=== PATIENT | female | born 1995 | race African-American/Black ===

== ENCOUNTER → 2017-05-29 | Outpatient (CLI) | payer OTHER | END | disposition home or self-care (01) | LOC: C.LABSPEC 13:38 | PROVIDERS: ATTEND Obstetrics & Gynecology | DX: Z34.03 Encounter for supervision of normal first pregnancy, third trimester (principal) ==

== ENCOUNTER → 2017-05-29 | Outpatient (CLI) | payer OTHER ==
[2017-05-29 14:41] LABS: HEMOGLOBIN 10.1 g/dL (12.0-16.0)
== END | disposition home or self-care (01) ==
LOC: C.LAB1850 12:18
PROVIDERS: ATTEND Obstetrics & Gynecology
DX: Z34.03 Encounter for supervision of normal first pregnancy, third trimester (principal)

== ENCOUNTER → 2017-06-09 | Outpatient (CLI) | payer OTHER | END | disposition home or self-care (01) | LOC: C.LAB1850 07:09 | PROVIDERS: ATTEND Obstetrics & Gynecology | DX: O28.1 Abnormal biochemical finding on antenatal screening of mother (principal) ==

== ENCOUNTER → 2017-07-31 | Outpatient (CLI) | payer OTHER | END | disposition home or self-care (01) | LOC: C.LABSPEC 13:49 | PROVIDERS: ATTEND Obstetrics & Gynecology | DX: O98.219 Gonorrhea complicating pregnancy, unspecified trimester (principal); Z3A.00 Weeks of gestation of pregnancy not specified ==

== ENCOUNTER 2017-08-12 23:03 | Inpatient (IN) | payer OTHER ==
[~2017-08-12] VITALS: Ht 157.5 cm; Wt 94.0 kg
[2017-08-12] MEDS ORDERED: LACTATED RINGER'S 1000ML 1,000 ML IV PRN (23:47)
[2017-08-13] MEDS ORDERED: PENICILLIN G POTASSIUM IV 6 MU in DEXTROSE 5% 250ML 250 ML IV ONE ×2
[2017-08-13] MEDS: LACTATED RINGER'S 1000ML 1,000 ML IV SCH ×2 (00:09→06:58)
[2017-08-13 00:12] LABS: MEAN CORPUSCULAR HGB CONC 35.5 g/dl (32-36)
[2017-08-13 00:15] VITALS: Ht 157.5 cm; Wt 94.0 kg
[2017-08-13] MEDS ORDERED: PREN1TAB29 (00:16)
[2017-08-13 00:19] LABS: HEMATOCRIT 32.4 % (37-47); HEMOGLOBIN 11.5 g/dL (12.0-16.0); MEAN CELL VOLUME 69.7 fL (80-100); MEAN CORPUSCULAR HEMOGLOBIN 24.7 pg (25-34); RED CELL DISTRIBUTION WIDTH CV 18.4 % (11.5-14.5); RED CELL DISTRIBUTION WIDTH SD 46.5 fL (36.4-46.3); WHITE BLOOD COUNT 5.48 K/uL (4.8-10.8)
[2017-08-13 00:59] LABS: PLATELET COUNT 130 K/uL (130-400)
[2017-08-13] MEDS ORDERED: BUPIVACAINE 0.25% 30 ML VIAL ONE (01:38)
[2017-08-13] MEDS ORDERED: EpHEDrine SULFATE INJ 50 MG/ML AMP ONE (01:38)
[2017-08-13] MEDS ORDERED: FENTANYL CITRATE INJ 50 MCG/1 ML 2 ML VIAL ONE (01:39)
[2017-08-13] MEDS ORDERED: FENTANYL 2MCG/ML ROPIV 1.25MG/ML 100ML BAG ONE (01:39)
[2017-08-13] MEDS ORDERED: LACTATED RINGER'S 1000ML 500 ML IV PRN (03:11)
[2017-08-13] MEDS ORDERED: NALOXONE HCL INJ 1 MG in SODIUM CHLORIDE 0.9% 1000ML 1,000 ML IV PRN (03:11)
[2017-08-13] MEDS ORDERED: EpHEDrine SULFATE INJ 50 MG/ML AMP IV PRN (03:15)
[2017-08-13] MEDS ORDERED: NALBUPHINE HCL INJ 10 MG/ML AMP IV PRN (03:15)
[2017-08-13] MEDS ORDERED: DiphenhydrAMINE HCL 50 MG/ML VIAL IV PRN (03:15)
[2017-08-13] MEDS ORDERED: ONDANSETRON INJ 2 MG/ML 2 ML VIAL IV PRN (03:15)
[2017-08-13] MEDS ORDERED: FENTANYL 2MCG/ML ROPIV 1.25MG/ML 100ML BAG EPI PRN (03:15)
[2017-08-13] MEDS ORDERED: NALOXONE HCL INJ 0.4 MG/1 ML VIAL/CARP IV PRN (03:15)
[2017-08-13] MEDS: PENICILLIN G POTASSIUM IV 3 MU in DEXTROSE 5% 100ML 100 ML IV PRN ×2 (03:55→08:02)
[2017-08-13 04:06] LABS: ALBUMIN 2.3 gm/dl (3.4-5.0); CALCIUM 7.9 mg/dl (8.5-10.1); CREATININE 0.81 mg/dl (0.60-1.20); POTASSIUM 3.8 mmol/L (3.5-5.1)
[2017-08-13] MEDS ORDERED: OXYTOCIN 30 UNITS/500ML NSS IV ONE (08:50)
[2017-08-13] MEDS ORDERED: METHYLERGONOVINE MALEATE 0.2 MG/ML AMP ONE (10:03)
[2017-08-13] MEDS ORDERED: CARBOPROST TROMETHAMINE 250 MCG/ML AMP ONE (10:03)
[2017-08-13] MEDS ORDERED: MISOPROSTOL 200 MCG TAB ONE (10:11)
[2017-08-13] MEDS ORDERED: OXYTOCIN INJ 20 UNITS in LACTATED RINGER'S 1000ML 1,000 ML IV SCH (10:20)
[2017-08-13] MEDS ORDERED: IBUPROFEN 600 MG TAB ONE (10:29)
[2017-08-13] MEDS ORDERED: SUPERCREAM 0.870 % 15GM JAR EXT PRN (10:30)
[2017-08-13] MEDS ORDERED: MISOPROSTOL 200 MCG TAB PR SCH (10:30)
[2017-08-13] MEDS ORDERED: BENZOCAINE 20% AER SPR 82.5 GM CAN EXT PRN (10:30)
[2017-08-13] MEDS ORDERED: ACETAMINOPHEN 325 MG TAB PO PRN (10:30)
[2017-08-13] MEDS ORDERED: LANOLIN OINT EXT PRN (10:30)
[2017-08-13] MEDS ORDERED: OXYTOCIN 30 UNITS/500ML NSS IV PRN (10:30)
[2017-08-13] MEDS ORDERED: DIPHTHERIA/TETANUS/PERTUSSIS 0.5 ML SYR/VIAL IM. ONE (10:30)
[2017-08-13] MEDS ORDERED: HYDROCORTISONE ACETATE 25 MG SUPP PR PRN (10:30)
--- NOTE | 2017-08-13 10:44 | DELIVERY SUMMARY ---
DATE OF OPERATION: 08/13/2017 This is a delivery summary. The patient dilated to complete and pushed to deliver a viable female , Apgars 8 and 9 via over second degree perineal laceration. Mouth and nose bulb suctioned at the perineum. Shoulders and body delivered with ease. was vigorous and crying at , there was known meconium stained fluid. Cord clamped at 30 seconds of life and to maternal abdomen where the cord was then doubly clamped and cut. Placenta was delivered spontaneously and intact, 3-vessel cord. Hemostasis was inadequate with dilute Pitocin and uterine massage and therefore 800 mcg of rectal Cytotec was given. Uterine tone improved after this as well as after the bladder was drained under sterile conditions for approximately 200 mL of urine. Laceration repaired in usual fashion using 3-0 Vicryl. Mother stable in recovery. EBL 500 mL. Cord blood and cord gas was obtained. By this time baby was on radiant warmer receiving attention. I attest to the content of the Intraoperative Record and any orders documented therein. Any exceptions are noted below. MTDD
--- NOTE | 2017-08-13 10:47 | Anesthesia Procedure Note ---
Anesthesia Epidural Removal Nt Date & Time Aug 13, 2017 at 10:47 Vital Signs Pain Intensity: 0.0 Notes Mental Status: alert / awake / arousable, participated in evaluation Nausea / Vomiting: adequately controlled Pain: adequately controlled Airway Patency, RR, SpO2: stable & adequate BP & HR: stable & adequate Hydration State: stable & adequate Neuraxial Anesthesia: was administered Anesthetic Complications: no major complications apparent, pt satisfied with anesthetic care Epidural: removed without complications, with tip intact
[2017-08-13 13:45] VITALS: BP 151/84; PULSE 73; TEMP 37.8
[2017-08-13 15:40] VITALS: BP 152/77; PULSE 79; TEMP 37.6
[2017-08-13] MEDS: IBUPROFEN 600 MG TAB PO PRN ×2 (16:00→22:13)
[2017-08-13] MEDS: OXYCODONE/ACETAMINOPHEN 5-325 TAB PO PRN ×2 (16:00→22:14)
[2017-08-13 17:30] VITALS: TEMP 37.6
--- NOTE | 2017-08-13 18:22 | Progress Note ---
Progress Note Date of Service Aug 13, 2017. Progress Note called by nursing due to pt complaints of significant pain in bilateral upper extremities. she had started to complain of this in labor. also with bilateral LE swelling and now one sided leg pain. Rec duplex bilateral LE to evaluate for dvt. As far as the arm pain, I am puzzled. She has sickle cell trait but given that she is oxygenating normally cannot see a relation. Doubt risk for upper extrem dvt given arms not swollen? Still, I requested consult with hospitalist for their evaluation and management of upper extremity pain and called Dr. Dave personally. She is not tachypneic, nor does she complain of cp or sob,. She does have elevated sbp and I did check a cmp earlier this am given likely diagnosis of gestational hypertension. She has low grade fever, ? viral illness. We will follow that and add cbc in am. Await consult.
[2017-08-13] MEDS: DOCUSATE SODIUM 100 MG CAP PO SCH (20:00)
[2017-08-13 20:30] VITALS: BP 132/84; PULSE 72; TEMP 37.4; O2SAT 99
--- NOTE | 2017-08-13 20:56 | Medical Consult ---
Consultation Date of Consultation: Aug 13, 2017. Attending Physician: Agnes Obrien M.D.(MANAGER OF APPLICATION DEVELOPMENT/OB) Reason for Consultation: Bilateral arm pain, lower extremity swelling History of Present Illness 22-year-old female with past medical history of sickle cell trait, beta thalassemia minor. She had a normal , does not smoke or drink alcohol. Has been complaining of both hands pain during , she contributed it to carpal tunnel syndrome. Her family is in [place] so she has been traveling with the bus back and forth to [place] during the last few months. Multiple family members are smokers and they smoke inside the house. She noticed bilateral lower extremity swelling That has been getting progressively worse throughout her Today she had a normal vaginal delivery that was uneventful. After delivery patient complained of bilateral upper extremities pain, intermittent chest tightness and lower extremity pain We were consulted to investigate her bilateral upper extremity pain and fever Patient stated that she has been having productive cough with yellowish mucus for the last 2 days Social History Smoking Status: Never Smoker Allergies Coded Allergies: No Known Allergies (Unverified , 08/13/17) Current Inpatient Medications Current Inpatient Medications Medications (Trade) Dose Ordered Sig/Ramy Route Start Time Stop Time Status Last Admin Dose Admin Oxytocin 20 units/ Lactated Ringer's 1,002 ml @ 125 mls/hr Q8H1M IV 08/13/17 10:20 08/14/17 02:21 08/13/17 12:11 125 MLS/HR Oxytocin (Pitocin IV) 30 units UD PRN IV 08/13/17 10:30 09/12/17 10:29 Benzocaine (Dermoplast Aero Spr) 1 appln PRN PRN EXT 08/13/17 10:30 09/12/17 10:29 Cocaine HCl (Supercream 0.870% Cr) BID PRN EXT 08/13/17 10:30 08/27/17 10:29 Hydrocortisone Acetate (Anusol Hc Supp) 25 mg BID PRN ND 08/13/17 10:30 09/12/17 10:29 Lanolin (Lanolin Oint) PRN PRN EXT 08/13/17 10:30 09/12/17 10:29 Ibuprofen (Motrin Tab) 600 mg Q4H PRN PO 08/13/17 10:30 09/12/17 10:29 4/29/18 16:00 600 MG Acetaminophen (Tylenol Tab) 650 mg Q6H PRN PO 08/13/17 10:30 09/12/17 10:29 08/13/17 12:33 650 MG Oxycodone/ Acetaminophen (Percocet 5-325mg Tab) 1 tab Q4H PRN PO 08/13/17 10:30 08/27/17 10:29 08/13/17 16:00 1 TAB Docusate Sodium (coLACE CAP) 100 mg BID PO 08/13/17 20:00 09/12/17 19:59 08/13/17 20:00 100 MG Review of Systems Review of system Constitutional: No fever / no chills / no sweats / no weakness / no fatigue Eyes: no blurring of vision / no eye pain / no discharge / no redness ENT: no hearing loss / no epistaxis /no swallowing problems Respiratory: Productive cough with yellowish mucus/ no SOB / no hemoptysis Cardiovascular: no Chest pain / no lower extremity edema / no palpitation, some intermittent chest tightness Abdomen: no pain / no nausea / no vomiting / no constipation Musculoskeletal: no joint pain / no muscle pain / no joint swelling, bilateral lower extremity swelling, bilateral upper extremity pain Genitourinary: no dysuria / no incontinence / no urinary retention Neurologic: no focal weakness / no numbness/tingling / no ataxia Psychiatric: no depression symptoms / no anxiety / no insomnia Endocrine: no excessive thirst / no excessive urination Hematologic: no abnormal bleeding / no bruising / no LN swelling Skin: No rash / no pallor Physical Exam Date Time Temp Pulse Resp B/P (MAP) Pulse Ox O2 Delivery O2 Flow Rate FiO2 08/13/17 17:30 37.6 08/13/17 15:40 37.6 79 18 152/77 (102) Room Air 08/13/17 15:40 Room Air 08/13/17 13:45 37.8 73 20 151/84 (106) Room Air 08/13/17 13:45 Room Air Physical examination General patient appears to be comfortable, not in acute distress HEENT: Atraumatic , normocephalic /no jaundice /no pallor /anicteric /no dry mucous membrane /normal external ear inspection Neck: Supple /no swelling /central trach Heart: S1/S2 normal/regular rate and rhythm/no gallop /no rub /no murmur Lungs: Clear to auscultation bilaterally/normal chest with expansion/no rhonchi/ no rales/no wheezing/no use of accessory muscles of respiration Abdomen: Soft/nontender/no guarding/no rebound/no organomegaly/no pulsatile mass Musculoskeletal: No swelling/no edema/no tenderness/normal range of motion Neuro exam: Awake alert oriented 3/cranial nerves II through XII appear to be intact/sensation intact/moves all extremities/no abnormal movements Psychiatric evaluation: No depressed mood/normal affect Skin: No rash on exposed skin area/no erythema Extremity: Normal pulse/bilateral +1 edema/no clubbing or cyanosis Endocrine/lymphatic: No obvious lymphadenopathy /no lymphedema Laboratory Results Last 24 Hours Test 08/13/17 00:02 08/13/17 03:36 08/13/17 20:41 White Blood Count 5.48 K/uL Red Blood Count 4.65 M/uL Hemoglobin 11.5 g/dL Hematocrit 32.4 % Mean Corpuscular Volume 69.7 fL Mean Corpuscular Hemoglobin 24.7 pg Mean Corpuscular Hemoglobin Concent 35.5 g/dl RDW Standard Deviation 46.5 fL RDW Coefficient of Variation 18.4 % Platelet Count 130 K/uL Platelet Estimate NORMAL Sodium Level 136 mmol/L Potassium Level 3.8 mmol/L Chloride Level 107 mmol/L Carbon Dioxide Level 20 mmol/L Anion Gap 9.0 mmol/L Blood Urea Nitrogen 6 mg/dl Creatinine 0.81 mg/dl Est Creatinine Clear Calc Drug Dose 118.4 ml/min Estimated GFR () 121.2 Estimated GFR (Non- 104.6 BUN/Creatinine Ratio 7.9 Random Glucose 84 mg/dl Calcium Level 7.9 mg/dl Total Bilirubin 1.0 mg/dl Aspartate Amino Transf (AST/SGOT) 30 U/L Alanine Aminotransferase (ALT/SGPT) 27 U/L Alkaline Phosphatase 115 U/L Total Protein 6.0 gm/dl Albumin 2.3 gm/dl Globulin 3.7 gm/dl Albumin/Globulin Ratio 0.6 Assessment & Plan 22-year-old female with beta thalassemia minor and sickle cell trait, never had any crisis before, has been having productive cough for the last 3 days, today status post vaginal delivery complained of bilateral upper extremity pain, chest tightness, bilateral lower extremity swelling. Assessment Productive cough accompanied by fever, possible pneumonia or bronchitis Bilateral lower extremity swelling and some chest tightness, rule out DVT Bilateral upper extremity pain could be contributed to carpal tunnel syndrome Plan Obtain chest x-ray 2 views rule out pneumonia Ultrasound lower extremity rule out DVT Patient is currently nursing, order him ampicillin for bronchitis/pneumonia Order troponin/EKG/CMP/CBC/blood cultures/UA and urine culture Patient has been mobile walking back and forth from the nursery to her room. Physical exam is not impressive. Normal oxygen saturation and normal heart rate, which makes pulmonary embolism is low suspicious. We will defer CT angiogram as patient is currently nursing Appears to have slightly elevated blood pressure, will follow up in a.m. if persistently elevated then will consider adding blood pressure medication
[2017-08-13 21:16] LABS: BASO % 0.1 %; BASO ABS # 0.01 K/uL (0-0.2); HEMATOCRIT 26.4 % (37-47); HEMOGLOBIN 9.2 g/dL (12.0-16.0); IG# 0.06 K/uL (0.00-0.02); LYMPH % 11.6 %; LYMPH ABS # 1.14 K/uL (1.2-3.4); MEAN CELL VOLUME 69.7 fL (80-100); MEAN CORPUSCULAR HEMOGLOBIN 24.3 pg (25-34); MEAN CORPUSCULAR HGB CONC 34.8 g/dl (32-36); MEAN PLATELET VOLUME 9.7 fL (7.4-10.4); MONO % 9.5 %; MONO ABS # 0.93 K/uL (0.11-0.59); NEUT % 78.2 %; PLATELET COUNT 134 K/uL (130-400); RED CELL DISTRIBUTION WIDTH CV 18.2 % (11.5-14.5); RED CELL DISTRIBUTION WIDTH SD 46.5 fL (36.4-46.3); WHITE BLOOD COUNT 9.84 K/uL (4.8-10.8)
--- NOTE | 2017-08-13 21:32 | DIAGNOSTIC IMAGING REPORT ---
TWO VIEW CHEST CLINICAL HISTORY: Cough. FINDINGS: PA and lateral chest radiographs are obtained. No prior studies are available for comparison at the time of dictation. The cardiomediastinal silhouette is unremarkable. The lungs and pleural spaces are clear. There is no pneumothorax. The bony thorax appears intact. IMPRESSION: No active disease in the chest. Electronically signed by: Eddie Nguyen M.D. 08/13/2017 9:30 PM Dictated Date/Time: 08/13/2017 9:29 PM
[2017-08-13 21:40] LABS: CALCIUM 7.4 mg/dl (8.5-10.1); CREATININE 0.85 mg/dl (0.60-1.20); POTASSIUM 4.2 mmol/L (3.5-5.1)
[2017-08-13 21:43] LABS: TOTAL PROTEIN 5.2 gm/dl (6.4-8.2)
--- NOTE | 2017-08-13 22:03 | DIAGNOSTIC IMAGING REPORT ---
ULTRASOUND BILATERAL LOWER EXTREMITY VENOUS CLINICAL HISTORY: Leg pain and swelling. COMPARISON STUDY: No priors. TECHNIQUE: Real-time, grayscale, and color Doppler sonography of the deep veins of the right and left lower extremity was performed from the inguinal crease to the calf. Compression and augmentation were utilized. FINDINGS: There is no sonographic evidence of deep venous thrombosis identified in the right or left lower extremity. The common femoral, superficial femoral, and popliteal veins are patent and normally compressible bilaterally. The greater saphenous vein and the profunda femoris vein at the junction with the common femoral vein are clear in both legs. The visualized calf veins are patent bilaterally. IMPRESSION: There is no sonographic evidence of deep venous thrombosis identified in the right or left lower extremity. Electronically signed by: Eddie Nguyen M.D. 08/13/2017 10:01 PM Dictated Date/Time: 08/13/2017 10:01 PM
[2017-08-13] MEDS: AMPICILLIN 250 MG CAP PO SCH (22:14)
[2017-08-14 00:15] VITALS: BP 148/82; PULSE 78; TEMP 36.9; O2SAT 98
[2017-08-14] MEDS ORDERED: LIDOCAINE HCL 2% JELLY 30 ML TUBE ONE (02:53)
[2017-08-14 03:15] VITALS: BP 143/80; PULSE 71; TEMP 37.2; O2SAT 100
[2017-08-14] MEDS: AMPICILLIN 250 MG CAP PO SCH ×4 (03:19→20:26)
[2017-08-14] MEDS: IBUPROFEN 600 MG TAB PO PRN ×5 (03:25→21:14)
[2017-08-14] MEDS: OXYCODONE/ACETAMINOPHEN 5-325 TAB PO PRN ×5 (03:26→21:14)
--- NOTE | 2017-08-14 06:45 | Progress Note ---
Subjective Aug 14, 2017. Subjective conversation w/ patient, physical exam Ambulation: ambulating normally Voiding: no voiding problems Diet Tolerance: Regular Diet Feeding Type: Breast Feeding Pain: bottom sore, upper extremity pain Comment: evaluated by hospitalists due to upper extremity pain. LE eval and no evid of dvts. swelling unchanged. Objective Vital Signs Date Time Temp Pulse Resp B/P (MAP) Pulse Ox O2 Delivery O2 Flow Rate FiO2 08/14/17 03:15 37.2 71 18 143/80 (101) 100 Room Air 08/14/17 00:15 36.9 78 18 148/82 (104) 98 Room Air 08/14/17 00:15 98 Room Air 08/13/17 20:30 37.4 72 18 132/84 (100) 99 Room Air 08/13/17 20:30 99 Room Air 08/13/17 17:30 37.6 08/13/17 15:40 37.6 79 18 152/77 (102) Room Air 08/13/17 15:40 Room Air 08/13/17 13:45 37.8 73 20 151/84 (106) Room Air 08/13/17 13:45 Room Air Physical Exam General Appearance: WELL-APPEARING, WD/WN, NO APPARENT DISTRESS Respiratory/Chest: lungs clear Cardiovascular: regular rate, rhythm Abdomen: non tender, soft Fundus: Firm, Tender (appropriately), Relation to Umbilicus (at u) Extremities: non-tender, + swelling (+2 bilaterally. no calf tenderness) Laboratory Results Last 24 Hours Test 08/13/17 20:57 08/13/17 21:03 08/13/17 23:55 08/14/17 04:44 White Blood Count 9.84 K/uL Red Blood Count 3.79 M/uL Hemoglobin 9.2 g/dL Hematocrit 26.4 % Mean Corpuscular Volume 69.7 fL Mean Corpuscular Hemoglobin 24.3 pg Mean Corpuscular Hemoglobin Concent 34.8 g/dl Platelet Count 134 K/uL Mean Platelet Volume 9.7 fL Neutrophils (%) (Auto) 78.2 % Lymphocytes (%) (Auto) 11.6 % Monocytes (%) (Auto) 9.5 % Eosinophils (%) (Auto) 0.0 % Basophils (%) (Auto) 0.1 % Neutrophils # (Auto) 7.70 K/uL Lymphocytes # (Auto) 1.14 K/uL Monocytes # (Auto) 0.93 K/uL Eosinophils # (Auto) 0.00 K/uL Basophils # (Auto) 0.01 K/uL RDW Standard Deviation 46.5 fL RDW Coefficient of Variation 18.2 % Immature Granulocyte % (Auto) 0.6 % Immature Granulocyte # (Auto) 0.06 K/uL Red Blood Cell Morphology Unremarkable Sodium Level 136 mmol/L Potassium Level 4.2 mmol/L Chloride Level 106 mmol/L Carbon Dioxide Level 23 mmol/L Anion Gap 8.0 mmol/L Blood Urea Nitrogen 7 mg/dl Creatinine 0.85 mg/dl Est Creatinine Clear Calc Drug Dose 112.8 ml/min Estimated GFR () 114.3 Estimated GFR (Non- 98.6 BUN/Creatinine Ratio 8.6 Random Glucose 91 mg/dl Calcium Level 7.4 mg/dl Total Bilirubin 0.7 mg/dl Aspartate Amino Transf (AST/SGOT) 50 U/L Alanine Aminotransferase (ALT/SGPT) 29 U/L Alkaline Phosphatase 98 U/L Total Protein 5.2 gm/dl Albumin 2.0 gm/dl Globulin 3.2 gm/dl Albumin/Globulin Ratio 0.6 Lactic Acid Level 1.1 mmol/L Urine Color YELLOW Urine Appearance CLEAR Urine pH 5.5 Urine Specific [place] 1.008 Urine Protein TRACE Urine Glucose (UA) NEG Urine Ketones NEG Urine Occult Blood 3+ Urine Nitrite NEG Urine Bilirubin NEG Urine Urobilinogen NEG Urine Leukocyte Esterase MODERATE Urine WBC (Auto) 10-30 /hpf Urine RBC (Auto) >30 /hpf Urine Hyaline Casts (Auto) 1-5 /lpf Urine Epithelial Cells (Auto) 20-30 /lpf Urine Bacteria (Auto) NEG Assessment and Plan Post- Day#: 1 Continue Routine Care: stable. eval by hospitalist appreciated. peripheral edema noted and expect slow resolution and reviewed that with patient. unclear etiology of upper arm pain and patient aware of rationale for consult and some labs pending. she is baby who is in intermediate nursery. jason po but hasn't eaten much. routine care today. bps are noted. may require bp check in one wk but do not feel pt requires bp meds due to dx of gest hypertension.
--- NOTE | 2017-08-14 07:11 | Discharge Instructions ---
Discharge Instructions Date of Service Aug 14, 2017. Admission Reason for Admission: LABOR Discharge Discharge Diagnosis / Problem: Vaginal Delivery Discharge Goals Goal(s): Routine recovery after delivery Medications Continue Dispensed Medications: supercream, dermaplast, lansinoh Activity Recommendations Activity Limitations: per Instructions/Follow-up section . Instructions / Follow-Up Instructions / Follow-Up ACTIVITY RECOMMENDATIONS: * Gradual return to full activity over the next 2-3 weeks. * No lifting - nothing heavier than baby over the next 2-3 weeks. * Do not engage in vigorous exercise, sexual activity or sports until cleared by your physician. * Do not drive or operate any motorized equipment until cleared by your physician. * You may shower/bathe daily. MEDICATIONS: For discomfort or pain, you may use Acetaminophen (Tylenol), Ibuprofen (Advil), or Naproxen (Aleve) following the package directions. For constipation you may use Colace following the package directions. BREAST CARE: If you are not breast feeding: * Wear a supportive bra 24 hours a day for one to two weeks. * Avoid stimulating your breasts and nipples as much as possible during the first few weeks after delivery. * When taking a shower, have the warm water hit your back, not breasts. * When your breasts feel full, apply ice packs. Usually three to four times a day helps ease the discomfort. * Take a mild pain medication (Tylenol / Motrin) when you are uncomfortable. If breast feeding: * Use breast milk to lubricate nipples. Lansinoh cream may be used for sore nipples. You do not need to remove cream prior to breast feeding. If using a different brand of cream, check the label for directions regarding removal of cream prior to nursing. * Wear a supportive bra. * If having problems with breasts or breast feeding, call a business systems consultant or your health care provider. EPISIOTOMY CARE: After delivery, if you have an episiotomy (stitches), the following steps will ease discomfort and aid healing. * For the first 24 hours after delivery, place ice packs next to your episiotomy to help reduce swelling. * After the first 24 hour-period, sitz baths, either portable or in the tub, are suggested. A shower with a shower arm sprayed over the episiotomy may be comforting. * Santa care should be done after each voiding and bowel movement. Squirt warm water from a plastic bottle over the perineum (region of the body between the anus and urinary opening) and pat dry. * Use Dermoplast to ease discomfort. Shake container. [place] directly over the episiotomy. Place a Tucks on a clean sanitary pad next to your episiotomy. SPECIAL CARE INSTRUCTIONS: When you are discharged from the hospital, it is important for you to follow the instructions listed below: * During the first week at home, you should be able to care for yourself and your baby. In addition, the usual light household activities are encouraged. * Limit your activities to the way you feel. Do not try to clean the house or move furniture. Be sensible. * If you actively engage in sports and have done so up until the time of your delivery, you may resume these activities as soon as you feel able. This may take up to one month or even longer. Use good judgment. * Continue to take your vitamins for at least six weeks after the of your baby. * Your diet need not be limited unless you were on a special diet before your delivery. Breast-feeding mothers need around 2500 calories per day and at least 64-80 ounces of fluid per day (8 to 10 glasses). * You should eat foods from the four major food groups. Crash diets or fad diets are to be avoided. Eating lean meats, fresh fruits and vegetables, low-fat dairy products, high fiber foods and a regular exercise program, will help you get back to your pre- weight without putting your health at risk. * Constipation is sometimes a problem after delivery. Take a mild laxative as needed. If breast feeding, Milk of Magnesia is acceptable to use. You may use a suppository or Fleets enema if no episiotomy. * A daily shower or tub bath is suggested. Be sure to thoroughly and gently dry the perineum. * A bloody vaginal discharge will usually continue until around four weeks post . A small amount of bleeding may continue for as long as six weeks. Vaginal discharge changes from the bright red bleeding after delivery to pink then brownish and finally yellowish-pink before becoming white and disappearing. * Bleeding may increase with activity. Your first period may come in 4-8 weeks. If you are breast feeding, your period may be delayed even longer. * [place] (sex) can begin whenever both you and your partner feel comfortable and do not have any form of genital infection. It is recommended that you wait at least six weeks for internal and external healing to occur. If you have questions, please talk to your health care practitioner. A condom should be used to prevent infection and . * Foreplay, gentle intercourse and lubrication is very important the first several times to prevent pain. A water-based lubricant such as K-Y jelly or Astroglide may be used. * If you have RH negative blood and your baby is RH positive, you will receive RHOGAM by injection prior to discharge. The nurse will give you a card to keep with you that has the date and place that you received RHOGAM after delivery. * During your care, you had a Rubella screen done to check for the presence of rubella antibodies in your blood. If your test was negative, you will receive a Rubella vaccine prior to discharge. This vaccine may cause a fever, soreness at the injection site and flu-like symptoms. If these symptoms persist, notify your health care practitioner. is not advised for one month after a Rubella vaccine. * Verbalizes understanding of car seat law as reviewed with patient nursing. * Car Seat hand-out given and reviewed with patient by nursing. * Shaken baby information reviewed with patient by nursing. Call you doctor if: * Heavy bleeding (saturating several pads an hour) or passing clots the size of your fist. * A fever >101 degrees F (38.3 degrees C) on two occasions four hours apart and /or chills. * Unusual pain in the pelvic or vaginal areas. * "Baby Blues" lasting longer than two weeks. If you have any questions or concerns, call your health care practitioner at . FOLLOW UP VISIT: * Please call the office at to schedule a 6 week examination. It is important you keep this appointment. It is important for you to make arrangements for either yearly or twice yearly check-ups thereafter. Current Hospital Diet Patient's current hospital diet: Regular OB Diet Discharge Diet Recommended Diet: Regular OB Diet Pending Studies Studies pending at discharge: no Medical Emergencies . Who to Call and When: Medical Emergencies: If at any time you feel your situation is an emergency, please call 911 immediately. . Non-Emergent Contact Non-Emergency issues call your: Primary Care Provider . . "Provider Documentation" section prepared by Margaret Montano. .
[2017-08-14 07:30] LABS: BASO % 0.2 %; BASO ABS # 0.02 K/uL (0-0.2); EOS % 0.2 %; EOS ABS # 0.02 K/uL (0-0.5); HEMATOCRIT 25.8 % (37-47); HEMOGLOBIN 9.1 g/dL (12.0-16.0); IG# 0.05 K/uL (0.00-0.02); LYMPH % 13.6 %; LYMPH ABS # 1.35 K/uL (1.2-3.4); MEAN CELL VOLUME 69.5 fL (80-100); MEAN CORPUSCULAR HEMOGLOBIN 24.5 pg (25-34); MEAN CORPUSCULAR HGB CONC 35.3 g/dl (32-36); MEAN PLATELET VOLUME 8.8 fL (7.4-10.4); MONO % 6.8 %; MONO ABS # 0.67 K/uL (0.11-0.59); NEUT % 78.7 %; NEUT ABS # 7.79 K/uL (1.4-6.5); NUCLEATED RED BLOOD CELL ABS 0.04 K/uL (0-0); PLATELET COUNT 117 K/uL (130-400); RED CELL DISTRIBUTION WIDTH CV 18.4 % (11.5-14.5); RED CELL DISTRIBUTION WIDTH SD 46.7 fL (36.4-46.3)
[2017-08-14 07:55] VITALS: BP 145/85; PULSE 82; TEMP 36.8; O2SAT 100
[2017-08-14 07:59] LABS: CALCIUM 7.7 mg/dl (8.5-10.1); CREATININE 0.85 mg/dl (0.60-1.20); POTASSIUM 4.2 mmol/L (3.5-5.1)
[2017-08-14 08:02] LABS: TOTAL PROTEIN 5.2 gm/dl (6.4-8.2)
[2017-08-14] MEDS: DOCUSATE SODIUM 100 MG CAP PO SCH ×2 (08:08→20:26)
--- NOTE | 2017-08-14 13:30 | ECHOCARDIOGRAM REPORT ---
*NOTICE TO RECEIVING CONSTITUTION PARTY AGENCY This information is strictly Confidential and protected under [place] law. [place] law prohibits you from making any further disclosure of this information unless further disclosure is expressly permitted by the written consent of the person to whom it pertains or is authorized by law. A general authorization for the release of medical or other information is not sufficient for this purpose. Hospital accepts no responsibility if the information is made available to any other person, INCLUDING THE PATIENT. Interpretation Summary * Name: SAMM LARA Study Date: 08/14/2017 07:41 AM BP: 143/80 mmHg * Patient Location: .OB\S\S441\S\1 HR: 71 * : 1995 (M/d/yyyy) Gender: Female Height: 62 in * Age: 22 yrs Ethnicity: AA Weight: 207 lb * Ordering Physician: Joan Yan * Referring Physician: Agnes Obrien M.D.(EARLY CHILDHOOD TEACHER ASSISTANT/OB) * Performed By: Obdulia Young RDCS * * Reason For Study: Chest pain, S/P Delivery * BSA: 1.9 m2 * -- Conclusions -- * Left ventricular systolic function is normal. * No regional wall motion abnormalities noted. * Ejection Fraction = 60-65%. * No significant valvular pathology. Procedure Details * A complete two-dimensional transthoracic echocardiogram was performed (2D, M-mode, Doppler and color flow Doppler). Left Ventricle * The left ventricle is normal in size. * There is normal left ventricular wall thickness. * Ejection Fraction = 60-65%. * Left ventricular systolic function is normal. * No regional wall motion abnormalities noted. Right Ventricle * The right ventricle is normal size. * The right ventricular systolic function is normal as assessed by tricuspid annular plane systolic excursion (TAPSE) (normal >1.5 cm). Atria * The left atrial size is normal. * Right atrial size is normal. * No ASD detected; PFO is not assessed. Mitral Valve * The mitral valve anatomy is normal. * There is no mitral valve stenosis. * There is trace mitral regurgitation. Tricuspid Valve * The tricuspid valve anatomy is normal. * There is no tricuspid stenosis. * There is trace tricuspid regurgitation. Aortic Valve * The aortic valve is normal in structure and function. * No hemodynamically significant valvular aortic stenosis. * There is no significant aortic regurgitation. Pulmonic Valve * The pulmonary valve is not well seen, but the Doppler examination is normal without significant regurgitation or stenosis. Great Vessels * The aortic root is normal size. * The pulmonary is not well visualized. Pericardium/Pleural * There is no pericardial effusion. Great Vessels * Normal inferior vena cava size and collapsability with sniff indicates a normal right atrial pressure of 3 mmHg MMode 2D Measurements and Calculations IVSd 0.89 cm IVSs 1.1 cm LVIDd 4.7 cm LVIDs 2.9 cm LVPWd 0.89 cm LVPWs 1.5 cm IVS/LVPW 10 FS 37.1 % EDV(Teich) 101.4 ml ESV(Teich) 33.4 ml EF(Teich) 67.1 % EDV(cubed) 102.6 ml ESV(cubed) 25.5 ml EF(cubed) 75.2 % % IVS thick 26.3 % % LVPW thick 64.4 % LV mass(C)d 139.6 grams LV mass(C)dI 72.0 grams/m\S\2 LV mass(C)s 120.1 grams LV mass(C)sI 61.9 grams/m\S\2 SV(Teich) 68.0 ml SI(Teich) 35.1 ml/m\S\2 SV(cubed) 77.1 ml SI(cubed) 39.8 ml/m\S\2 Ao root diam 2.4 cm Ao root area 4.5 cm\S\2 ACS 1.6 cm LA dimension 3.9 cm LA/Ao 1.6 LVAd ap4 28.4 cm\S\2 LVLd ap4 8.3 cm EDV(MOD-sp4) 89.7 ml EDV(sp4-el) 82.9 ml LVAs ap4 13.9 cm\S\2 LVLs ap4 6.6 cm ESV(MOD-sp4) 28.0 ml ESV(sp4-el) 24.7 ml EF(MOD-sp4) 68.8 % EF(sp4-el) 70.2 % LVAd ap2 26.6 cm\S\2 LVLd ap2 8.7 cm EDV(MOD-sp2) 72.8 ml EDV(sp2-el) 68.7 ml LVAs ap2 16.1 cm\S\2 LVLs ap2 7.8 cm ESV(MOD-sp2) 30.5 ml ESV(sp2-el) 28.0 ml EF(MOD-sp2) 58.1 % EF(sp2-el) 59.2 % LVLd %diff 5.4 % EDV(MOD-bp) 83.2 ml LVLs %diff 15.6 % ESV(MOD-bp) 31.6 ml EF(MOD-bp) 61.9 % SV(MOD-sp4) 61.7 ml SI(MOD-sp4) 31.8 ml/m\S\2 SV(MOD-sp2) 42.3 ml SI(MOD-sp2) 21.8 ml/m\S\2 SV(MOD-bp) 51.5 ml SI(MOD-bp) 26.6 ml/m\S\2 SV(sp4-el) 58.2 ml SI(sp4-el) 30.0 ml/m\S\2 SV(sp2-el) 40.6 ml SI(sp2-el) 21.0 ml/m\S\2 Doppler Measurements and Calculations MV E max franklin 130.5 cm/sec MV A max franklin 60.4 cm/sec MV E/A 2.2 MV dec time 0.20 sec Ao V2 max 153.0 cm/sec Ao max PG 9.4 mmHg Ao max PG (full) 3.3 mmHg LV V1 max PG 6.1 mmHg LV V1 max 123.4 cm/sec PA V2 max 110.4 cm/sec PA max PG 4.9 mmHg TR max franklin 280.4 cm/sec
--- NOTE | 2017-08-14 13:37 | Hospitalist Progress Note ---
Hospitalist Progress Note Date of Service Aug 14, 2017. (Liliana Hua PA-C) Subjective Pt evaluation today including: conversation w/ patient, physical exam, chart review, lab review, review of studies, conversation w/ hospice consultant Pain: Left sided leg pain PO Intake: Fair Voiding: no voiding problems The patient was seen and examined this morning. Pt reports having severe pain starting in the left lower back and radiating down the left leg, causing a numbness and tingling. She denies arm pain, chest pain, or any difficulty with breathing/shortness of breath with ambulation at this point. She notes that about 1 hour prior to my exam she took a percocet however this did not relieve any of her pain, and still rates the leg pain as a 9/10. Pt has a heat pack on but this is also not helping much. There are no specific aggravating or alieving factors that she can identify. Swelling in feet and legs seems to be improved per her report, and is walking without difficulty although feels the pain go down her left leg as above. Pt reports breast feeding is going well. She is going to use the breast pump later today. Constitutional: No fever, No chills, No sweats Eyes: No redness, No diplopia ENT: No nasal symptoms, No sore throat Respiratory: No cough, No shortness of breath, No dyspnea on exertion Cardiovascular: No chest pain, No palpitations Abdomen: No pain, No nausea, No vomiting, No diarrhea, No constipation Musculoskeletal: + swelling (improving) Female : No dysuria Neurologic: + see HPI, No weakness, No balance problems Endo: No fatigue Skin: No rash, No itch (Liliana Hua PA-C) Objective Vital Signs Date Time Temp Pulse Resp B/P (MAP) Pulse Ox O2 Delivery O2 Flow Rate FiO2 08/14/17 07:55 Room Air 08/14/17 07:55 36.8 82 20 145/85 (105) 100 Room Air 08/14/17 03:15 37.2 71 18 143/80 (101) 100 Room Air 08/14/17 00:15 36.9 78 18 148/82 (104) 98 Room Air 08/14/17 00:15 98 Room Air 08/13/17 20:30 37.4 72 18 132/84 (100) 99 Room Air 08/13/17 20:30 99 Room Air 08/13/17 17:30 37.6 08/13/17 15:40 37.6 79 18 152/77 (102) Room Air 08/13/17 15:40 Room Air 08/13/17 13:45 37.8 73 20 151/84 (106) Room Air 08/13/17 13:45 Room Air (Liliana Hua PA-C) Physical Exam General Appearance: WD/WN, no apparent distress, + obese Eyes: PERRL, EOMI ENT: hearing grossly normal, pharynx normal Neck: supple, no JVD Respiratory/Chest: lungs clear, no respiratory distress, no accessory muscle use, + pertinent finding (on RA with adequate sats) Cardiovascular: regular rate, rhythm, no JVD, no murmur Abdomen: normal bowel sounds, non tender, soft Extremities: non-tender, no calf tenderness, + pedal edema (1+ pitting up to mid ant tib region) Neurologic/Psychiatric: alert, normal mood/affect, oriented x 3 Skin: normal color, warm/dry (Liliana Hua, LISA-C) Laboratory Results Last 24 Hours Test 08/13/17 20:57 08/13/17 21:03 08/13/17 23:55 08/14/17 07:19 White Blood Count 9.84 K/uL 9.90 K/uL Red Blood Count 3.79 M/uL 3.71 M/uL Hemoglobin 9.2 g/dL 9.1 g/dL Hematocrit 26.4 % 25.8 % Mean Corpuscular Volume 69.7 fL 69.5 fL Mean Corpuscular Hemoglobin 24.3 pg 24.5 pg Mean Corpuscular Hemoglobin Concent 34.8 g/dl 35.3 g/dl Platelet Count 134 K/uL 117 K/uL Mean Platelet Volume 9.7 fL 8.8 fL Neutrophils (%) (Auto) 78.2 % 78.7 % Lymphocytes (%) (Auto) 11.6 % 13.6 % Monocytes (%) (Auto) 9.5 % 6.8 % Eosinophils (%) (Auto) 0.0 % 0.2 % Basophils (%) (Auto) 0.1 % 0.2 % Neutrophils # (Auto) 7.70 K/uL 7.79 K/uL Lymphocytes # (Auto) 1.14 K/uL 1.35 K/uL Monocytes # (Auto) 0.93 K/uL 0.67 K/uL Eosinophils # (Auto) 0.00 K/uL 0.02 K/uL Basophils # (Auto) 0.01 K/uL 0.02 K/uL RDW Standard Deviation 46.5 fL 46.7 fL RDW Coefficient of Variation 18.2 % 18.4 % Immature Granulocyte % (Auto) 0.6 % 0.5 % Immature Granulocyte # (Auto) 0.06 K/uL 0.05 K/uL Red Blood Cell Morphology Unremarkable Sodium Level 136 mmol/L 138 mmol/L Potassium Level 4.2 mmol/L 4.2 mmol/L Chloride Level 106 mmol/L 107 mmol/L Carbon Dioxide Level 23 mmol/L 23 mmol/L Anion Gap 8.0 mmol/L 7.0 mmol/L Blood Urea Nitrogen 7 mg/dl 7 mg/dl Creatinine 0.85 mg/dl 0.85 mg/dl Est Creatinine Clear Calc Drug Dose 112.8 ml/min 112.8 ml/min Estimated GFR () 114.3 114.3 Estimated GFR (Non- 98.6 98.6 BUN/Creatinine Ratio 8.6 7.8 Random Glucose 91 mg/dl 88 mg/dl Calcium Level 7.4 mg/dl 7.7 mg/dl Total Bilirubin 0.7 mg/dl 0.8 mg/dl Aspartate Amino Transf (AST/SGOT) 50 U/L 54 U/L Alanine Aminotransferase (ALT/SGPT) 29 U/L 32 U/L Alkaline Phosphatase 98 U/L 97 U/L Total Protein 5.2 gm/dl 5.2 gm/dl Albumin 2.0 gm/dl 2.0 gm/dl Globulin 3.2 gm/dl 3.2 gm/dl Albumin/Globulin Ratio 0.6 0.6 Lactic Acid Level 1.1 mmol/L Urine Color YELLOW Urine Appearance CLEAR Urine pH 5.5 Urine Specific [place] 1.008 Urine Protein TRACE Urine Glucose (UA) NEG Urine Ketones NEG Urine Occult Blood 3+ Urine Nitrite NEG Urine Bilirubin NEG Urine Urobilinogen NEG Urine Leukocyte Esterase MODERATE Urine WBC (Auto) 10-30 /hpf Urine RBC (Auto) >30 /hpf Urine Hyaline Casts (Auto) 1-5 /lpf Urine Epithelial Cells (Auto) 20-30 /lpf Urine Bacteria (Auto) NEG Nucleated RBC Absolute Count (auto) 0.04 K/uL Nucleated Red Blood Cells % 0.4 % Microcytosis PRESENT Magnesium Level 1.7 mg/dl (Liliana Hua, COCO) Assessment and Plan 22-year-old female with beta thalassemia minor and sickle cell trait, never had any crisis before, has been having productive cough for the last 3 days, s/p vaginal delivery on 08/13 - complained of bilateral upper extremity pain, chest tightness, bilateral lower extremity swelling. Assessment LLE pain/sciatic - possible somatic complaints secondary to underlying anxiety/psychiatric findings. Would benefit from psych eval by inpatient team for outpatient recommendations- if prescribing medications consider that the patient plans to breast feed. - Pt is currently a [employer] student and had planned on initially delivering in [facility] - will need outpt psych referral depending on her plans of residence after this hospitalization. - today denies chest pain, tightness, breathing sx. - Continue pain regimen per OB - would d/c percocet since this did not seem to improve pain Possible underlying infection - Possible possible pneumonia or bronchitis and was started on ampicillin - pt denies cough, breath sounds are clear upon exam. - Afebrile over 24 hrs, sputum culture if produced - Await UCx and if negative then d/c antibiotics - if positive then adjust abx pending sensitivity x 5-7day course. Urinary sx neg. - CXR negative Bilateral lower extremity swelling - Improving, DVT workup negative. Gestational HTN - BP stable in the 140s and is slightly improved compared to yesterday - continue to monitor. DVT ppx: ambulatory CODE: FULL Disposition: D/c per primary team. At this time medicine will sign off, please do not hesitate to call with questions and concerns. (Liliana Hua PA-C) Reviewed: Pt Seen/Exam by Me (Elaina Cardona MD) History Physician Black Top Spreader Machine Operator supervision Note: I interviewed and examined the patient. Discussed with LISA Hua and agree with findings and plan as documented in the note. Any exceptions or clarifications are listed here: Patient reports today she has constant shooting pains starting in her shoulders down her bilateral arms, also with pain in the left hip and buttock traveling down her lateral thigh to her knee. This pain is worse with sitting so she finds herself pacing around the room and rocking back and forth on her legs. She tells me "I am trying not to cry." All of these pains started since her vaginal delivery yesterday. She denies any chest pain at all, no cough or shortness of breath. Her lower extremity edema is improved since yesterday. She has no dysuria or urinary frequency. She is breast-feeding. Her baby is currently in the nursery. I discussed the case with the OB attending, Dr. Patel. Vitals reviewed Gen: AAOx3, NAD HEENT: anicteric sclerae, EOMI CV: RRR no mgr nl S1S2 Pulm: CTAB no wcr Ext: 1-2+ edema legs to thighs bilaterally, 2+ DP pulses, 5 out of 5 strength throughout all upper extremities and lower extremities, sensation intact to light touch throughout, DTRs 2+ and brisk, symmetric throughout, no ankle clonus , negative straight leg raise bilaterally, no significant tenderness to palpation over the bilateral shoulders and trapezii Skin: no rashes, warm/dry Psych: Flat affect, soft voice, answers all questions appropriately, poor eye contact at times Patient is a 22-year-old female with history of sickle cell trait, beta thalassemia minor, microcytic anemia, gestational hypertension, here with at 38 weeks gestational age, with multiple musculoskeletal complaints. Previous chest pain complaint is completely resolved. Lower extremity edema is improving and likely related to recent . Echocardiogram reviewed and is normal, Doppler of the lower extremities is negative for DVT, chest x-ray reviewed and is normal. She did have a low-grade fever in the immediate period which has resolved. Urinalysis appears contaminated. She has had an expected acute blood loss anemia from vaginal delivery. Her AST is mildly elevated. Left-sided sciatica, bilateral upper extremity pain-all related likely to positioning and muscle spasm from recent . -Advised continued heating pads, NSAIDs, acetaminophen, avoid opioids -Conditions continue ampicillin that was begun yesterday-discussed with OB and will defer to them -Blood cultures and urine culture were drawn and should be followed but not likely to be positive -Gave patient reassurance that this will improve -Recommended follow-up with family doctor after discharge and referral for physical therapy if no improvement in symptoms -Appreciate psychiatric consultation for evaluation for mood disorder Hospitalist service will sign off. Thank you for this consultation. Documented By: Elaina Cardona (Elaina Cardona MD)
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
[2017-08-14 16:40] VITALS: BP 140/83; PULSE 81; TEMP 37.2; O2SAT 99
[2017-08-14 23:45] VITALS: BP 143/79; PULSE 83; TEMP 36.8
[2017-08-15] MEDS: AMPICILLIN 250 MG CAP PO SCH ×2 (02:23→09:11)
[2017-08-15] MEDS: IBUPROFEN 600 MG TAB PO PRN ×4 (02:24→18:11)
[2017-08-15] MEDS: OXYCODONE/ACETAMINOPHEN 5-325 TAB PO PRN ×2 (02:26→08:12)
--- NOTE | 2017-08-15 07:08 | Progress Note ---
Subjective August 15, 2017. Subjective conversation w/ patient Ambulation: ambulating normally Voiding: no voiding problems Diet Tolerance: Regular Diet Lochia: Moderate Feeding Type: Breast Feeding Pain: Minimal pain reported Review of Systems Constitutional: No fever, No chills Respiratory: No shortness of breath Cardiac: No chest pain Abdomen: No nausea, No vomiting Objective Vital Signs Date Time Temp Pulse Resp B/P (MAP) Pulse Ox O2 Delivery O2 Flow Rate FiO2 08/14/17 23:45 Room Air 08/14/17 23:45 36.8 83 18 143/79 (100) 08/14/17 16:40 Room Air 08/14/17 16:40 37.2 81 18 140/83 (102) 99 Room Air 08/14/17 07:55 Room Air 08/14/17 07:55 36.8 82 20 145/85 (105) 100 Room Air Physical Exam General Appearance: WELL-APPEARING, WD/WN, NO APPARENT DISTRESS Respiratory/Chest: lungs clear, normal breath sounds Cardiovascular: regular rate, rhythm Abdomen: soft Fundus: Firm, Non-Tender, Relation to Umbilicus (1 below) Extremities: no calf tenderness Laboratory Results Last 24 Hours Test 08/14/17 07:19 White Blood Count 9.90 K/uL Red Blood Count 3.71 M/uL Hemoglobin 9.1 g/dL Hematocrit 25.8 % Mean Corpuscular Volume 69.5 fL Mean Corpuscular Hemoglobin 24.5 pg Mean Corpuscular Hemoglobin Concent 35.3 g/dl Platelet Count 117 K/uL Mean Platelet Volume 8.8 fL Neutrophils (%) (Auto) 78.7 % Lymphocytes (%) (Auto) 13.6 % Monocytes (%) (Auto) 6.8 % Eosinophils (%) (Auto) 0.2 % Basophils (%) (Auto) 0.2 % Neutrophils # (Auto) 7.79 K/uL Lymphocytes # (Auto) 1.35 K/uL Monocytes # (Auto) 0.67 K/uL Eosinophils # (Auto) 0.02 K/uL Basophils # (Auto) 0.02 K/uL RDW Standard Deviation 46.7 fL RDW Coefficient of Variation 18.4 % Immature Granulocyte % (Auto) 0.5 % Immature Granulocyte # (Auto) 0.05 K/uL Nucleated RBC Absolute Count (auto) 0.04 K/uL Nucleated Red Blood Cells % 0.4 % Microcytosis PRESENT Sodium Level 138 mmol/L Potassium Level 4.2 mmol/L Chloride Level 107 mmol/L Carbon Dioxide Level 23 mmol/L Anion Gap 7.0 mmol/L Blood Urea Nitrogen 7 mg/dl Creatinine 0.85 mg/dl Est Creatinine Clear Calc Drug Dose 112.8 ml/min Estimated GFR () 114.3 Estimated GFR (Non- 98.6 BUN/Creatinine Ratio 7.8 Random Glucose 88 mg/dl Calcium Level 7.7 mg/dl Magnesium Level 1.7 mg/dl Total Bilirubin 0.8 mg/dl Aspartate Amino Transf (AST/SGOT) 54 U/L Alanine Aminotransferase (ALT/SGPT) 32 U/L Alkaline Phosphatase 97 U/L Total Protein 5.2 gm/dl Albumin 2.0 gm/dl Globulin 3.2 gm/dl Albumin/Globulin Ratio 0.6 Medications Current Inpatient Medications Medications (Trade) Dose Ordered Sig/Ramy Route Start Time Stop Time Status Last Admin Dose Admin Oxytocin (Pitocin IV) 30 units UD PRN IV 08/13/17 10:09/12/17 10:29 Benzocaine (Dermoplast Aero Spr) 1 appln PRN PRN EXT 08/13/17 10:30 09/12/17 10:08/14/17 03:21 1 APPLN Cocaine HCl (Supercream 0.870% Cr) BID PRN EXT 08/13/17 10:30 08/27/17 10:29 Hydrocortisone Acetate (Anusol Hc Supp) 25 mg BID PRN AL 08/13/17 10:30 09/12/17 10:29 Lanolin (Lanolin Oint) PRN PRN EXT 08/13/17 10:30 09/12/17 10:29 Ibuprofen (Motrin Tab) 600 mg Q4H PRN PO 08/13/17 10:09/12/17 10:08/15/17 02:24 600 MG Acetaminophen (Tylenol Tab) 650 mg Q6H PRN PO 08/13/17 10:30 09/12/17 10:08/13/17 12:33 650 MG Oxycodone/ Acetaminophen (Percocet 5-325mg Tab) 1 tab Q4H PRN PO 08/13/17 10:08/27/17 10:08/15/17 02:26 1 TAB Docusate Sodium (coLACE CAP) 100 mg BID PO 08/13/17 20:00 09/12/17 19:59 08/14/17 20:26 100 MG Ampicillin (Ampicillin Cap) 250 mg Q6H PO 08/13/17 21:00 08/20/17 20:59 08/15/17 02:23 250 MG Assessment and Plan Post- Day#: 2 Continue Routine Care: Resident Physician Supervision Note: I was present with [Name of resident] during the history and exam. I discussed the case with the resident and agree with the findings and plan as documented in the note. Any exceptions or clarifications are listed here: I suspect that the left leg pain & bilateral shoulder & back pain is musculoskeletal in origin. We will do a trial of flexeril 10mg every 8 hours for the shoulder/back pain. Consult PT for evaluation of left thigh/hip/knee pain & shoulder pain prior to discharge. Patient is agreeable to this plan. Documented By: Ree Kyle Kaya 22F s/p NVD day 2 - B+, Rubella Immune, GBS +ve - Vital Signs reviewed and BP continues to remain elevated at 140s/80s - Hemoglobin Reviewed. 11.5 -> 9.1 - Encourage Ambulation and Breast Feeding Multiple Complaints of UE and LE pain - afebrile for past 24 hours - medical team consulted, appreciate recommendations - venous doppler negative for LE DVT - CMP wnl - CXR negative - ECHO wnl - bcx negative - ucx pending - can d/c ampicillin if negative - thank you to psych for consult -> assessment did not reveal underlying psychiatric disorder or need for medications Provided Ucx comes back negative and pt continues to improve, can d/c later today w/follow up in office regarding recheck of BP Margaret Montano, PGY1 Resident Tracking Resident Involvement: Resident Care Provided Care Provided: OB Delivery
[2017-08-15 08:00] VITALS: BP 146/84; PULSE 85; TEMP 37.2
[2017-08-15] MEDS: DOCUSATE SODIUM 100 MG CAP PO SCH ×2 (08:13→20:14)
[2017-08-15] MEDS: CYCLOBENZAPRINE HCL 5 MG TAB PO SCH ×3 (09:11→20:14)
--- NOTE | 2017-08-15 14:43 | Progress Note ---
Progress Note Date of Service August 15, 2017. Progress Note I was asked by nursing to see patient. Nurse was concerned that when the patient tried to get out of bed, she complained of not feeling stable on her legs. When I went to see the patient she was sitting back on the bed, she was naked and tearful. She notes that her legs are just throbbing and hurt so bad. I went and spoke with the PT that evaluated her. He could not replicate the pain, she had no muscle weakness by testing and no apparent neuro deficits. He could not even make her flinch with any test or palpation. There really isn't anything to recommend for therapy. Patient just had another flexeril and we suggested a shower. Patient apparently pushed for about two hours so I suspect that what is going on is muscle soreness from pulling on legs. Patient was able to get out of the bed on her own. She shuffled to the bathroom with minimal assist. Got a walker from PT to see if it would help her feel more stable with getting up. After shower , will have her get a nap and see how she is feeling after that.
[2017-08-15 16:15] VITALS: BP 135/89; PULSE 88; TEMP 37.4; O2SAT 100
--- NOTE | 2017-08-15 17:50 | Progress Note ---
Progress Note Date of Service August 15, 2017. Progress Note Patient has been seen by CYS mostly just to make sure she has the services she needs for the next week before she goes back to [facility]. the CYS social media director is going to check on her [place] and will send someone into the home tomorrow. Since the patient's shower, she has made several laps around the halls, slow, but did well. She has no reason, medically , to remain hospitalized. Have r/o clot for her leg pain and has had through evaluation by PT and essentially no significant findings. Is OK for d/c [facility].
[2017-08-15 21:00] VITALS: BP_DIAS 89; PULSE 88; TEMP 37.4
== END 2017-08-15 22:00 | disposition home or self-care (01) | DRG 775 ==
LOC: C.OPB 23:03 → C.LD 23:04 → C.OPB 23:51 → C.OBG 08-13 13:52
PROVIDERS: ADMIT Obstetrics & Gynecology; ATTEND Obstetrics & Gynecology
PROC: 0KQM0ZZ Repair Perineum Muscle, Open Approach (ICD-10-PCS; principal; 2017-08-13)
PROC: 10E0XZZ Delivery of Products of Conception, External Approach (ICD-10-PCS; principal; 2017-08-13)
DX: O70.1 Second degree perineal laceration during delivery (principal); J18.9 Pneumonia, unspecified organism; J40 Bronchitis, not specified as acute or chronic; O99.02 Anemia complicating childbirth; O99.52 Diseases of the respiratory system complicating childbirth; O13.4 Gestational [pregnancy-induced] hypertension without significant proteinuria, complicating childbirth; D57.3 Sickle-cell trait; Z37.0 Single live birth; Z22.330 Carrier of Group B streptococcus; M79.89 Other specified soft tissue disorders; R45.86 Emotional lability; M79.662 Pain in left lower leg; M25.512 Pain in left shoulder; M25.511 Pain in right shoulder; Z3A.38 38 weeks gestation of pregnancy

== ENCOUNTER 2021-01-01 22:55 | Observation (INO) ==
[2021-01-01] MEDS ORDERED: dexAMETHasone**PF** 10 MG/ML VIAL IV ONE (23:50)
[2021-01-01] MEDS ORDERED: SODIUM CHLORIDE 0.9% 1000ML 1,000 ML IV ONE (23:50)
[2021-01-01] MEDS ORDERED: KETOROLAC TROMETHAMINE 15 MG/ML VIAL IV ONE (23:50)
[2021-01-01] MEDS ORDERED: GABAPENTIN 100 MG CAP PO STA (23:50)
--- NOTE | 2021-01-01 23:57 | Emergency Department Note ---
History of Present Illness General Chief complaint: Leg Injury/Pain Stated complaint: BOTH LEGS PAINFUL, LOWER BACK Time Seen by Provider: 01/01/21 23:40 Source: patient Mode of arrival: ambulatory Limitations: no limitations History of Present Illness Provider complaint: b/l leg pain Onset (ago): day(s) 3 Location: lower extremity Maximum Pain Intensity: 10 Associated symptoms: + chest pain; no fever/chills, no loss of appetite, no nausea/vomiting or no syncope This is a 25-year-old female who presents emergency department complaining of bilateral lower extremity and low back pain. Patient was previously seen in the emergency department initially for strep throat and was treated, and was also seen for chest and back pain. Patient states she is taking the antibiotics yet, she did finish a prior course of antibiotics. Patient did follow-up with her PCP today and was given hydrocodone in addition which she states did not help her pain. She states the pain is improved when she gets up and walks around. S he denies numbness or tingling, color change, rash or sores. She states she does have increased joint pain. Patient denies fevers or chills, abdominal pain, change in bowel or bladder function. Patient states she is staying well- hydrated but still does not have a normal appetite. Patient denies any recent trauma or change in activity. Pt seen during a time of high acuity and national emergency pandemic while wearing PPE. Home Medications Medication Instructions Recorded Confirmed Type amoxicillin 875 mg-potassium 1 tab PO Q12H 10 Days #20 tab 12/27/20 01/01/21 Rx clavulanate 125 mg tablet (Augmentin) norethindrone 1.5 mg-ethinyl 1 tab PO QAM 12/27/20 01/01/21 History estradiol 30 mcg(21)/iron 75 mg(7) tablet (Junel FE 1.5/30 (28)) prednisone 50 mg tablet 50 mg PO DAILY 01/01/21 01/01/21 History Allergies Allergy/AdvReac Type Severity Reaction Status Date / Time No Known Allergies Allergy Verified 01/01/21 23:51 Past Med/Surg History Medical History (Updated 01/04/21 @ 05:53 by Kirsty Duarte DO) Beta thalassemia Sickle cell trait Surgical History No pertinent past surgical history Social History Smoking Status: Never smoker Hx Alcohol Use: Yes Alcohol type: wine and hard liquor Hx Substance Use: No Preferred Language: Upper Sorbian Director Of Market Analysis Required: No Beliefs That Will Affect Care: None Current Living Situation: Family Current Living Situation Comment: Daughter and father of daughter Other Information That Helps Us Care for You: No Feels Safe at Home: Yes Safety Concerns: Feels Safe At This Time Assistive Devices: None Review of Systems A total of 10 systems reviewed and were otherwise negative All systems reviewed & are unremarkable except as noted in HPI & below Physical Exam Vital Signs Vital Signs - 24 hr 01/01/21 23:11 01/02/21 03:03 01/02/21 05:00 Temperature 37.6 C H Temperature Source Oral Pulse Rate 81 Pulse Rate [Right Finger] 61 60 Pulse Rhythm [Right Finger] Regular Respiratory Rate 18 16 16 Respiratory Effort / Characteristics Non-Labored Spontaneous Non-Labored Spontaneous Accessory Muscle Use Respiratory Depth Normal Normal Normal Respiratory Pattern Regular Blood Pressure 139/81 Blood Pressure [Right Arm] 134/85 133/81 Blood Pressure Mean 100 Blood Pressure Mean [Right Arm] 101 98 Blood Pressure Position Sitting Blood Pressure Position [Right Arm] Semi-fowlers Pulse Oximetry 99 99 98 Oxygen Delivery Method Room Air Room Air Room Air Sepsis Recent Fever Within 48 Hours No Sepsis New/Unexplained Change in Mental Status N/A Sepsis Action Taken by Nursing No Action Required 01/02/21 06:49 Temperature Temperature Source Pulse Rate Pulse Rate [Right Finger] 68 Pulse Rhythm [Right Finger] Respiratory Rate 18 Respiratory Effort / Characteristics Respiratory Depth Respiratory Pattern Blood Pressure Blood Pressure [Right Arm] 148/85 H Blood Pressure Mean Blood Pressure Mean [Right Arm] 106 Blood Pressure Position Blood Pressure Position [Right Arm] Pulse Oximetry 99 Oxygen Delivery Method Sepsis Recent Fever Within 48 Hours Sepsis New/Unexplained Change in Mental Status Sepsis Action Taken by Nursing GENERAL: alert, well appearing, well nourished, no distress, non-toxic EYE EXAM: normal conjunctiva, PERRL and EOM's grossly intact OROPHARYNX: no exudate, no erythema, lips, buccal mucosa, and tongue normal and mucous membranes are moist NECK: supple, no nuchal rigidity, no adenopathy, non-tender LUNGS: Clear to auscultation. Normal chest wall mechanics, no w/r/r HEART: no murmurs, S1 normal and S2 normal ABDOMEN: abdomen soft, non-tender, normo-active bowel sounds, no masses, no rebound or guarding. BACK: Back is symmetrical on inspection and there is no deformity, no midline tenderness, no CVA tenderness. SKIN: no rashes and no bruising UPPER EXTREMITIES: upper extremities are grossly normal. FROM, nml pulses b/l. LOWER EXTREMITIES: No pitting edema. FROM. Sensation normal and intact b/l. No joint effusions. No evidence of trauma or deformity. Compartments soft. Normal DP/PT pulses. NEURO EXAM: Normal sensorium, cranial nerves II-XII grossly intact, normal speech, no gross weakness of arms, no gross weakness of legs. Gross sensation intact. Course Course 0145: Pt states still having pain. Updated on results. 0340: Pt states no improvement in pain. Worse with movement. 0355: Discussed with hospitalist. Administered Medications Acetaminophen (Acetaminophen 325 Mg Tab) 650 mg PO Q4H PRN PRN Reason: pain/fever Stop: 02/01/21 08:15 Last Admin: 01/03/21 20:34 Dose: 650 mg Documented by: [id number] Admin: 01/03/21 16:01 Dose: 650 mg Documented by: [id number] Admin: 01/03/21 10:53 Dose: 650 mg Documented by: [id number] Admin: 01/02/21 21:24 Dose: 650 mg Documented by: [id number] Admin: 01/02/21 17:12 Dose: 650 mg Documented by: [id number] Admin: 01/02/21 11:51 Dose: 650 mg Documented by: [id number] Amoxicillin/Clavulanate Potassium (Amoxicillin/Clavulanate 875 Mg Tab) 1 tab PO BIDM [facility]; Protocol Stop: 01/07/21 23:59 Last Admin: 01/03/21 16:56 Dose: 1 tab Documented by: [id number] Admin: 01/03/21 08:17 Dose: 1 tab Documented by: [id number] Admin: 01/02/21 17:06 Dose: 1 tab Documented by: [id number] Admin: 01/02/21 13:31 Dose: 1 tab Documented by: [id number] Enoxaparin Sodium (Enoxaparin Inj 40 Mg/0.4 Ml Syr) 40 mg SQ Q24H MACIE Stop: 02/01/21 10:14 Last Admin: 01/03/21 10:55 Dose: Not Given Documented by: [id number] Admin: 01/02/21 11:46 Dose: 40 mg Documented by: [id number] Morphine Sulfate (Morphine Sulfate 2 Mg/Ml Carp) 2 mg IV Q4H PRN PRN Reason: Pain Stop: 01/16/21 08:15 Last Admin: 01/04/21 00:46 Dose: 2 mg Documented by: [id number] Admin: 01/03/21 11:57 Dose: 2 mg Documented by: [id number] Admin: 01/02/21 22:17 Dose: 2 mg Documented by: [id number] Admin: 01/02/21 08:36 Dose: 2 mg Documented by: [id number] Naproxen (Naproxen 250 Mg Tab) 250 mg PO BID MACIE Stop: 02/01/21 11:29 Last Admin: 01/03/21 20:34 Dose: 250 mg Documented by: [id number] Admin: 01/03/21 08:17 Dose: 250 mg Documented by: [id number] Admin: 01/02/21 20:12 Dose: 250 mg Documented by: [id number] Admin: 01/02/21 13:31 Dose: 250 mg Documented by: [id number] Prednisone (Prednisone 20 Mg Tab) 20 mg PO DAILY MACIE Stop: 02/02/21 11:59 Last Admin: 01/03/21 13:47 Dose: 20 mg Documented by: [id number] Discontinued Medications Dexamethasone Sodium Phosphate (DexamethasonePf 10 Mg/Ml Vial) 10 mg IV NOW ONE Stop: 01/01/21 23:51 Last Admin: 01/02/21 00:28 Dose: 10 mg Documented by: [id number] Diazepam (Diazepam 5 Mg/Ml Inj 10ml Vial) 2 mg IV NOW STA Stop: 01/02/21 02:24 Last Admin: 01/02/21 02:32 Dose: 2 mg Documented by: [id number] Gabapentin (Gabapentin 100 Mg Cap) 100 mg PO NOW STA Stop: 01/01/21 23:51 Last Admin: 01/02/21 01:14 Dose: 100 mg Documented by: [id number] Sodium Chloride (Nss 1000ml) 1,000 mls @ 999 mls/hr IV .Q1H1M ONE Stop: 01/02/21 00:50 Last Infusion: 01/02/21 02:15 Dose: 0 mls/hr Documented by: [id number] Admin: 01/02/21 00:29 Dose: 999 mls/hr Documented by: [id number] Acetaminophen (Ofirmev) 1,000 mg in 100 mls @ 400 mls/hr IV NOW STA Stop: 01/02/21 02:37 Last Infusion: 01/02/21 03:01 Dose: 0 mls/hr Documented by: [id number] Admin: 01/02/21 02:31 Dose: 400 mls/hr Documented by: [id number] Sodium Chloride (Nss 1000ml) 1,000 mls @ 100 mls/hr IV .Q10H MACIE Stop: 01/02/21 18:15 Last Infusion: 01/02/21 21:39 Dose: 0 mls/hr Documented by: [id number] Infusion: 01/02/21 13:30 Dose: 100 mls/hr Documented by: [id number] Infusion: 01/02/21 12:42 Dose: 0 mls/hr Documented by: [id number] Infusion: 01/02/21 10:55 Dose: 100 mls/hr Documented by: [id number] Infusion: 01/02/21 10:20 Dose: 0 mls/hr Documented by: [id number] Admin: 01/02/21 10:14 Dose: 100 mls/hr Documented by: [id number] Ioversol (Optiray 320 125ml) 120 ml IV ONCE ONE Stop: 01/02/21 12:56 Last Admin: 01/02/21 12:56 Dose: 120 ml Documented by: [id number] Ketorolac Tromethamine (Ketorolac Tromethamine 15 Mg/Ml Vial) 10 mg IV NOW ONE Stop: 01/01/21 23:51 Last Admin: 01/02/21 00:28 Dose: 10 mg Documented by: [id number] Ketorolac Tromethamine (Ketorolac Tromethamine 15 Mg/Ml Vial) 15 mg IV Q6H PRN PRN Reason: Pain Stop: 01/07/21 08:15 Last Admin: 01/02/21 08:37 Dose: 15 mg Documented by: [id number] Morphine Sulfate (Morphine Sulfate 2 Mg/Ml Carp) 2 mg IV NOW STA Stop: 01/02/21 03:50 Last Admin: 01/02/21 04:16 Dose: 2 mg Documented by: [id number] Medical Decision Making Differential Diagnosis Fracture, subluxation, dislocation, contusion, ligamentous injury, neurovascular, compartment syndrome, rhabdomyolysis, as well as other pathologies. Medical Records Attestation: I reviewed the patient's medical records. Home Medications Current Medication List: was personally reviewed by me Laboratory Data Attestation: I reviewed the patient's lab results. Result diagrams: 01/03/21 05:22 01/03/21 05:22 Lab Results 01/02/21 01/02/21 01/02/21 Range/Units 00:19 00:19 00:19 WBC 11.63 H (4.8-10.8) K/uL RBC 5.43 H (4.2-5.4) M/uL Hgb 12.2 (12.0-16.0) g/dL Hct 35.4 L (37-47) % MCV 65.2 L (80-100) fL MCH 22.5 L (25-34) pg MCHC 34.5 (32-36) g/dL RDW Std Deviation 37.2 (36.4-46.3) fL RDW Coeff of Matt 15.9 H (11.5-14.5) % Plt Count 193 (130-400) K/uL MPV 9.8 (7.4-10.4) fL Immature Gran % (Auto) 1.2 % Neut % (Auto) 79.2 % Lymph % (Auto) 11.1 % [place] % (Auto) 8.1 % Eos % (Auto) 0.2 % Baso % (Auto) 0.2 % Neut # (Auto) 9.22 H (1.4-6.5) K/uL Lymph # (Auto) 1.29 (1.2-3.4) K/uL [place] # (Auto) 0.94 H (0.11-0.59) K/uL Eos # (Auto) 0.02 (0-0.5) K/uL Baso # (Auto) 0.02 (0-0.2) K/uL Immature Gran # (Auto) 0.14 H (0.00-0.02) K/uL Hypersegmented Neuts Polychromasia 1+ Microcytosis Present ESR (0-20) mm/hr Sodium 133 L (136-145) mmol/L Potassium 3.7 (3.5-5.1) mmol/L Chloride 102 (98-107) mmol/L Carbon Dioxide 25 (21-32) mmol/L Anion Gap 6.0 (3-11) BUN 9 (7-18) mg/dl Creatinine 0.92 (0.6-1.2) mg/dl Est Cr Clr Drug Dosing 95.6 ml/min Est GFR ( Amer) 101.7 ml/min Est GFR (Non-Af Amer) 87.8 ml/min BUN/Creatinine Ratio 10.1 (10-20) Glucose 129 H (70-99) mg/dl Calcium 8.3 L (8.5-10.1) mg/dl Magnesium (1.8-2.4) mg/dl Total Bilirubin 0.7 (0.2-1) mg/dl AST 27 (15-37) U/L ALT 29 (12-78) U/L Alkaline Phosphatase 88 (45-117) U/L Troponin I < 0.015 (0-0.045) ng/ml C-Reactive Protein 1.95 H (0-0.29) mg/dl Total Protein 6.8 (6.4-8.2) gm/dl Albumin 3.0 L (3.4-5.0) gm/dl Globulin 3.8 (2.5-4.0) gm/dl Albumin/Globulin Ratio 0.8 L (0.9-2) HCG, Qual Negative (Negative) Urine Color Urine Appearance (Clear) Urine pH (4.5-7.5) Ur Specific Agenda (1.000-1.030) Urine Protein (Negative) Urine Glucose (UA) (Negative) Urine Ketones (Negative) Urine Blood (Negative) Urine Nitrite (Negative) Urine Bilirubin (Negative) Urine Urobilinogen (Negative) Ur Leukocyte Esterase (Negative) Lyme Disease IgG Ab Negative (Negative) Lyme Disease IgM Ab Negative (Negative) COVID-19 Eval Order SARS-CoV-2 (PCR) (Negative) 01/02/21 01/02/21 01/02/21 Range/Units 00:19 01:50 05:15 WBC (4.8-10.8) K/uL RBC (4.2-5.4) M/uL Hgb (12.0-16.0) g/dL Hct (37-47) % MCV (80-100) fL MCH (25-34) pg MCHC (32-36) g/dL RDW Std Deviation (36.4-46.3) fL RDW Coeff of Matt (11.5-14.5) % Plt Count (130-400) K/uL MPV (7.4-10.4) fL Immature Gran % (Auto) % Neut % (Auto) % Lymph % (Auto) % [place] % (Auto) % Eos % (Auto) % Baso % (Auto) % Neut # (Auto) (1.4-6.5) K/uL Lymph # (Auto) (1.2-3.4) K/uL [place] # (Auto) (0.11-0.59) K/uL Eos # (Auto) (0-0.5) K/uL Baso # (Auto) (0-0.2) K/uL Immature Gran # (Auto) (0.00-0.02) K/uL Hypersegmented Neuts Polychromasia Microcytosis ESR 16 (0-20) mm/hr Sodium (136-145) mmol/L Potassium (3.5-5.1) mmol/L Chloride (98-107) mmol/L Carbon Dioxide (21-32) mmol/L Anion Gap (3-11) BUN (7-18) mg/dl Creatinine (0.6-1.2) mg/dl Est Cr Clr Drug Dosing ml/min Est GFR ( Amer) ml/min Est GFR (Non-Af Amer) ml/min BUN/Creatinine Ratio (10-20) Glucose (70-99) mg/dl Calcium (8.5-10.1) mg/dl Magnesium (1.8-2.4) mg/dl Total Bilirubin (0.2-1) mg/dl AST (15-37) U/L ALT (12-78) U/L Alkaline Phosphatase (45-117) U/L Troponin I (0-0.045) ng/ml C-Reactive Protein (0-0.29) mg/dl Total Protein (6.4-8.2) gm/dl Albumin (3.4-5.0) gm/dl Globulin (2.5-4.0) gm/dl Albumin/Globulin Ratio (0.9-2) HCG, Qual (Negative) Urine Color Yellow Urine Appearance Clear (Clear) Urine pH 7.0 (4.5-7.5) Ur Specific Agenda 1.011 (1.000-1.030) Urine Protein Negative (Negative) Urine Glucose (UA) Negative (Negative) Urine Ketones Negative (Negative) Urine Blood Negative (Negative) Urine Nitrite Negative (Negative) Urine Bilirubin Negative (Negative) Urine Urobilinogen Negative (Negative) Ur Leukocyte Esterase Negative (Negative) Lyme Disease IgG Ab (Negative) Lyme Disease IgM Ab (Negative) COVID-19 Eval Order Covid19 at [facility] SARS-CoV-2 (PCR) (Negative) 01/02/21 01/03/21 01/03/21 Range/Units 05:15 05:22 05:22 WBC 10.70 (4.8-10.8) K/uL RBC 5.53 H (4.2-5.4) M/uL Hgb 12.3 (12.0-16.0) g/dL Hct 35.3 L (37-47) % MCV 63.8 L (80-100) fL MCH 22.2 L (25-34) pg MCHC 34.8 (32-36) g/dL RDW Std Deviation 36.6 (36.4-46.3) fL RDW Coeff of Matt 15.9 H (11.5-14.5) % Plt Count 209 (130-400) K/uL MPV 9.8 (7.4-10.4) fL Immature Gran % (Auto) 1.4 % Neut % (Auto) 66.7 % Lymph % (Auto) 24.4 % [place] % (Auto) 6.8 % Eos % (Auto) 0.5 % Baso % (Auto) 0.2 % Neut # (Auto) 7.14 H (1.4-6.5) K/uL Lymph # (Auto) 2.61 (1.2-3.4) K/uL [place] # (Auto) 0.73 H (0.11-0.59) K/uL Eos # (Auto) 0.05 (0-0.5) K/uL Baso # (Auto) 0.02 (0-0.2) K/uL Immature Gran # (Auto) 0.15 H (0.00-0.02) K/uL Hypersegmented Neuts 1+ Polychromasia 1+ Microcytosis Present ESR (0-20) mm/hr Sodium 137 (136-145) mmol/L Potassium 4.3 D (3.5-5.1) mmol/L Chloride 105 (98-107) mmol/L Carbon Dioxide 27 (21-32) mmol/L Anion Gap 5.0 (3-11) BUN 13 (7-18) mg/dl Creatinine 1.00 (0.6-1.2) mg/dl Est Cr Clr Drug Dosing 87.4 ml/min Est GFR ( Amer) 92.0 ml/min Est GFR (Non-Af Amer) 79.4 ml/min BUN/Creatinine Ratio 12.6 (10-20) Glucose 117 H (70-99) mg/dl Calcium 8.4 L (8.5-10.1) mg/dl Magnesium 2.3 (1.8-2.4) mg/dl Total Bilirubin (0.2-1) mg/dl AST (15-37) U/L ALT (12-78) U/L Alkaline Phosphatase (45-117) U/L Troponin I (0-0.045) ng/ml C-Reactive Protein (0-0.29) mg/dl Total Protein (6.4-8.2) gm/dl Albumin (3.4-5.0) gm/dl Globulin (2.5-4.0) gm/dl Albumin/Globulin Ratio (0.9-2) HCG, Qual (Negative) Urine Color Urine Appearance (Clear) Urine pH (4.5-7.5) Ur Specific [place]enda (1.000-1.030) Urine Protein (Negative) Urine Glucose (UA) (Negative) Urine Ketones (Negative) Urine Blood (Negative) Urine Nitrite (Negative) Urine Bilirubin (Negative) Urine Urobilinogen (Negative) Ur Leukocyte Esterase (Negative) Lyme Disease IgG Ab (Negative) Lyme Disease IgM Ab (Negative) COVID-19 Eval Order SARS-CoV-2 (PCR) NEGATIVE (Negative) Imaging Data Attestation: I personally reviewed and interpreted this imaging study as follows: My Impression: xr lumbar spine: No obvious fracture or subluxation Radiologist's Impression: Ultrasound venous bilateral lower extremities: No evidence of deep venous thrombosis. Radiologist: Del Pardo MD MDM Narrative This is a 25-year-old female presents emergency department due to worsening back and lower extremity pain making it difficult for her to walk. Patient was seen and evaluated here yesterday for upper back and chest pain and was well- appearing at time of discharge after feeling improved with medications and IV fluids and reassuring evaluation. Patient did recently have strep pharyngitis, however states those symptoms seem to improved and she is still taking the antibiotics as prescribed, she did complete a course of steroids. Patient was given several medications in the emergency department for her back pain while performing x-rays of the low back and lower extremity Dopplers to evaluate her symptoms. Patient was hydrated. Patient continued to complain of persistent pain and was unable to walk, so we discussed potential inpatient evaluation. Patient was in agreement with this plan and hospitalist was contacted. It is unclear if this is a streptococcal arthritis related to the original infection, side effect of her medications, evolving rheumatologic condition, or other etiology at this time. Lyme, CRP, ESR, and CPK were reassuring. Patient was afebrile and hemodynamically stable throughout. Patient without signs or symptoms to suggest acute cauda equina, epidural abscess or hematoma, acute discitis. Stat MRI deferred at this time. An order was placed for continuous cardiac monitoring. The monitor shows a rate of _72_ with _normal sinus_ rhythm. Impression & Plan Back pain, Lower extremity pain, bilateral, Ambulatory dysfunction Discharge Plan Visit Data Chief Complaint: Leg Injury/Pain Stated Complaint: BOTH LEGS PAINFUL, LOWER BACK ED Provider: Kirsty Duarte Discharge Problem: Back pain, Lower extremity pain, bilateral, Ambulatory dysfunction Patient Disposition: Admitted As Inpatient Discharge Instructions Interventions: ED Discharge Assessment Last Done: 01/02/21 08:21 Discharge Problem: Back pain Qualifiers: Back pain location: low back pain Chronicity: acute Back pain laterality: bilateral Sciatica presence: without sciatica Qualified Code(s): M54.5 - Low back pain
[2021-01-02 00:28] LABS: Basophils # (auto) 0.02 K/uL (0-0.2); Basophils % (auto) 0.2 %; Eosinophils # (auto) 0.02 K/uL (0-0.5); Eosinophils % (auto) 0.2 %; Hematocrit (blood only) 35.4 % (37-47); Hemoglobin 12.2 g/dL (12.0-16.0); Immature Granulocytes # (auto) 0.14 K/uL (0.00-0.02); Immature Granulocytes % (auto) 1.2 %; Lymphocytes # (auto) 1.29 K/uL (1.2-3.4); Lymphocytes % (auto) 11.1 %; Mean Corpuscular Hemoglobin 22.5 pg (25-34); Mean Corpuscular Hgb Conc 34.5 g/dL (32-36); Mean Corpuscular Volume 65.2 fL (80-100); Mean Platelet Volume 9.8 fL (7.4-10.4); Monocytes # (auto) 0.94 K/uL (0.11-0.59); Monocytes % (auto) 8.1 %; Neutrophils # (auto) 9.22 K/uL (1.4-6.5); Neutrophils % (auto) 79.2 %; Platelet Count 193 K/uL (130-400); RDW Coefficient of Variation 15.9 % (11.5-14.5); RDW Standard Deviation 37.2 fL (36.4-46.3); Red Blood Count 5.43 M/uL (4.2-5.4); White Blood Count 11.63 K/uL (4.8-10.8)
[2021-01-02 00:44] LABS: Alanine Aminotransferase 29 U/L (12-78); Aspartate Aminotransferase 27 U/L (15-37); BUN Creatinine Ratio 10.1 (10-20); Blood Urea Nitrogen 9 mg/dl (7-18); Calcium 8.3 mg/dl (8.5-10.1); Carbon Dioxide 25 mmol/L (21-32); Chloride 102 mmol/L (98-107); Creatinine Clr Calc Pharmacy 95.6 ml/min; Est GFR (African American) 101.7 ml/min; Est GFR (Non-African American) 87.8 ml/min; Glucose 129 mg/dl (70-99); Potassium 3.7 mmol/L (3.5-5.1); Sodium 133 mmol/L (136-145)
[2021-01-02 00:47] LABS: Albumin Globulin Ratio 0.8 (0.9-2); Alkaline Phosphatase 88 U/L (45-117); Bilirubin,Total 0.7 mg/dl (0.2-1); Globulin 3.8 gm/dl (2.5-4.0); Total Protein 6.8 gm/dl (6.4-8.2)
[2021-01-02 00:54] LABS: Pregnancy Test, Serum Negative (Negative)
[2021-01-02 01:06] LABS: Microcytosis Present; Polychromasia 1+
[2021-01-02 02:04] LABS: Lyme Ab IgG w/WB Rflx Negative (Negative); Lyme Ab IgM w/WB Rflx Negative (Negative)
[2021-01-02] MEDS ORDERED: ACETAMINOPHEN 1,000 MG/100 ML VIAL IV STA (02:23)
[2021-01-02 02:37] LABS: Appearance Urine Clear (Clear); Bilirubin Urine Negative (Negative); Blood Urine Negative (Negative); Color Urine Yellow; Glucose Urine UA Negative (Negative); Ketones Urine Negative (Negative); Leukocyte Esterase Urine Negative (Negative); Nitrite Urine Negative (Negative); Protein Urine Negative (Negative); Specific Gravity Urine 1.011 (1.000-1.030); Urobilinogen Urine Negative (Negative)
[2021-01-02] MEDS ORDERED: MoRPHine SULFATE 2 MG/ML CARP IV STA (03:49)
[2021-01-02 04:17] LABS: C Reactive Protein 1.95 mg/dl (0-0.29); Troponin I < 0.015 ng/ml (0-0.045)
--- NOTE | 2021-01-02 06:45 | History and Physical Report ---
DATE OF ADMISSION: 01/02/2021. CHIEF COMPLAINT: Back pain. HISTORY OF PRESENT ILLNESS: This is a 25-year-old female with no significant past medical history, who was diagnosed with strep throat on last Monday, has been taking Augmentin. She finished a 5-day course of Augmentin, five more days left. Presents with back pain.Back pain started about 5 days ago, back of the thoracic spine and lumbar spine, also pain is radiating to the chest and was radiating to lower extremities, which prompted her to come to the ER and she says she also is not able to walk much because of pain. There was some nausea, but it is improved. Was also somewhat constipated, that is improved. Denies any shortness of breath, no cough, no headache. Some mild neck pain. No no runny nose, no sore throat. Appetite is not that great. Normal bladder movements. Currently, resting comfortably and hemodynamically stable. In the ER, venous Doppler and lumbar spine x ray was done. Hemodynamically stable with a mild temperature spike of 37.6. Lyme screen negative. The patient received Toradol, dexamethasone, Valium, gabapentin, morphine in the ER. Still not feeling better, so we were called for admission. ALLERGIES: No known drug allergies. PAST MEDICAL HISTORY: History of sickle cell trait. PAST SURGICAL HISTORY: No past surgical history on file. MEDICATIONS: The patient is on Augmentin 1 tablet p.o. b.i.d., one tablet daily. FAMILY HISTORY: Significant for father had lung cancer; mother had lung cancer, sickle cell trait; sister has sickle cell trait; paternal grandfather had lung cancer; paternal grandmother had lung cancer. SOCIAL HISTORY: Single, no smoking. Alcohol occasionally. No drug use. REVIEW OF SYSTEMS: As per HPI. Rest of review of systems is negative. PHYSICAL EXAMINATION: GENERAL: The patient is of moderate build, not in acute distress. VITAL SIGNS: Temperature 36.6, pulse 61, respiratory rate 16, blood pressure 134/85, oxygen 99% on room air. HEENT: Pupils equal, round and reactive to light. Oral mucosa moist. NECK: No JVD or neck masses. CARDIOVASCULAR: S1 and S2 heard. Regular rate and rhythm. No murmur, no gallop. RESPIRATORY SYSTEM: Normal AP diameter. No accessory muscle use. No wheezing, no crackles. ABDOMEN: Soft, bowel sounds present, nontender, no distention. CENTRAL NERVOUS SYSTEM: Cranial nerves II-XII grossly intact, nonfocal. MUSCULOSKELETAL: No spinal tenderness present. Straight leg test negative. EXTREMITIES: No edema, no erythema. LABORATORY DATA: WBC 11.6, hemoglobin 12.2, hematocrit 35.4, platelets 193. ESR 16. Sodium 133, potassium 3.7, chloride 102, bicarbonate 25, BUN 9, creatinine 0.9, serum glucose 129, calcium 8.3, total bilirubin 0.7, AST 27, ALT 29, alkaline phosphatase 88. Troponin I less than 0.015. C-reactive protein was 1.9. HCG qualitative negative. Urinalysis negative. Lyme screen negative. IMAGING DATA: Venous Doppler, no DVT on the preliminary report. Lumbar spine x-ray results pending. EKG: Sinus bradycardia at a rate of 58, no acute ST changes seen. ASSESSMENT AND PLAN: This is a 25-year-old female who presents with back pain. 1. Back pain radiating to the legs: Also complaining of ambulatory dysfunction. Etiology unclear. Symptoms started with a strep throat. Will get a CAT scan of the thoracic and lumbar spine. PT, OT, pain control. Observation in medical floor. 2. Strep throat: Continue and complete the course of Augmentin. 3. History of sickle cell trait. 4. Deep venous thrombosis prophylaxis: Lovenox. DISPOSITION: Observation in the medical floor. Expect to discharge home and follow up with family doctor. Job ID: [id number] MTDD
--- NOTE | 2021-01-02 07:49 | Ultrasound Report ---
US venous doppler LE BI CLINICAL HISTORY: leg pain COMPARISON STUDY: August 13, 2017 FINDINGS: Real-time and color flow Doppler imaging were performed. Flow was seen within the femoral, popliteal and calf veins with no intraluminal thrombus demonstrated. The saphenous vein is patent. IMPRESSION: No evidence of deep venous thrombosis. ACT 112: Negative or not required by law. The above report was generated using voice recognition software. It may contain grammatical, syntax o r spelling errors. Electronically signed by: Charo Fuentes DO 01/02/2021 7:48 AM
[2021-01-02] MEDS ORDERED: POLYETHYLENE (MIRALAX) 17 GM PACK PO PRN (08:16)
[2021-01-02] MEDS ORDERED: SODIUM CHLORIDE 0.9% 1000ML 1,000 ML IV SCH (08:16)
[2021-01-02] MEDS ORDERED: KETOROLAC TROMETHAMINE 15 MG/ML VIAL IV PRN (08:16)
[2021-01-02] MEDS ORDERED: AMOXICILLIN/CLAVULANATE 875MG HOME PACK PO SCH (08:16)
[2021-01-02] MEDS ORDERED: ONDANSETRON INJ 2 MG/ML 2 ML VIAL IV PRN (08:16)
--- NOTE | 2021-01-02 08:33 | XRay Report ---
LUMBAR SPINE 5 VIEWS HISTORY: back pain COMPARISON: None. FINDINGS: There is no fracture. Minimal retrolisthesis of L5 on S1 is seen. Disc spaces are preserved. IMPRESSION: No evidence of acute fracture. Minimal retrolisthesis of L5 on S1, could represent developmental variant. ACT 112: Negative or not required by law. Electronically signed by: Charo Fuentes DO 01/02/2021 8:32 AM
[2021-01-02] MEDS: MoRPHine SULFATE 2 MG/ML CARP IV PRN ×2 (08:36→22:17)
--- NOTE | 2021-01-02 09:07 | CT Scan Report ---
CT OF THE THORACIC SPINE CLINICAL HISTORY: Severe back pain. COMPARISON STUDY: Chest CT January 01, 2021. TECHNIQUE: Helical axial images of the thoracic spine were obtained. Sagittal and coronal reconstru ctions were viewed. Automated exposure control was utilized for the study. A dose lowering techniqu e was utilized adhering to the principles of ALARA. FINDINGS: Incidental note is made of trace bilateral pleural effusions. Alignment of the thoracic spi ne is anatomic. Vertebral body heights are maintained. There is no fracture. There is no suspicious o sseous lesion. The facet joints are intact. Disc spaces are preserved. Central canal and neural maria fernanda en are suboptimally assessed by CT but appear patent. IMPRESSION: No acute thoracic spine fracture or subluxation. ACT 112: Negative or not required by law. Electronically signed by: Larry Todd M.D. 01/02/2021 9:05 AM
--- NOTE | 2021-01-02 09:20 | CT Scan Report ---
CT OF THE LUMBAR SPINE CLINICAL HISTORY: severe back pain COMPARISON STUDY: Lumbar spine radiographs January 02, 2021. TECHNIQUE: Helical axial images of the lumbar spine were obtained. Sagittal and coronal reconstruct ions were viewed. Automated exposure control was utilized for the study. A dose lowering technique was utilized adhering to the principles of ALARA. FINDINGS: Alignment of the lumbar spine is anatomic. Slight concavity of several endplates is chronic /developmental. There is no acute fracture. There is no osseous lesion. Facet joints are intact. Disc spaces are preserved. Central canal and neural foramen are suboptimally assessed by CT. IMPRESSION: No acute lumbar spine fracture or subluxation. ACT 112: Negative or not required by law. Electronically signed by: Larry Todd M.D. 01/02/2021 9:19 AM
[2021-01-02] MEDS: ENOXAPARIN INJ 40 MG/0.4 ML SYR SQ SCH (11:46)
[2021-01-02] MEDS: ACETAMINOPHEN 325 MG TAB PO PRN ×3 (11:51→21:24)
[2021-01-02] MEDS ORDERED: OPTIRAY 320 125ml IV ONE (12:55)
--- NOTE | 2021-01-02 13:01 | Hospitalist Progress Note ---
Date of Service January 02, 2021 delayed entry date of service as above Assessment & Plan (1) Streptococcal arthritis: Plan: ASSESSMENT AND PLAN: This is a 25-year-old female who presents with back pain. 1. Back pain radiating to the legs, possible post streptococcal arthritis versus acute rheumatic fever --Diagnosed with strep throat 12/27/2020, currently on Augmentin --ESR normal --CT thoracic and lumbar spine with no acute findings --Repeat strep test Check echo --Change Toradol to naproxen twice daily Morphine as needed Continue Augmentin --We will consult rheumatology and infectious disease --PT and OT evaluation 2. Strep throat: Continue and complete the course of Augmentin. 3. History of sickle cell trait. 4. Deep venous thrombosis prophylaxis: Lovenox. DISPOSITION: Pending plan of care discussed with patient in detail and at length all questions answered she is understanding, agreeable, comfortable with the plan of care Admission and Anticipated Discharge Date Admission Date: January 02, 2021 Subjective ff up for back and LE pain seen resting in bed radioactivity technician at bedside throughout whole encounter states she has low back pain ,and BL LE pain mostly on the hip joints worse with movement denies upper back pain or chest pain no sore throat, cough, dyspnea, palpitations, dizziness, headache, abdominal pain, nausea/vomiting no other symptoms Review of Systems Review of Systems: all noted and negative except for above Physical Exam Physical Exam: General- oriented x 3, not in distress, speaks in sentences with no effort or accessory muscle use Head- atraumatic Eyes- PERRL, EOMI, anicteric ENT- oropharynx clear Neck- supple, no JVD, no adenopathy, no thyromegaly; carotids +2/2, no bruits appreciated Lungs- clear to auscultation bilaterally, no rales/wheezes Heart- normal rate, regular rhythm; no murmur, no gallop, no rub appreciated Abdomen- normal bowel sounds, nondistended, soft, nontender, no masses or hepatosplenomegaly Lower back-mild tenderness on palpation Extremities- no pretibial edema, no calf tenderness; peripheral pulses intact No joint edema/erythema/warmth/tenderness Neuro- alert, oriented x 3; CN 2-12 grossly intact; motor 5/5 bilaterally;sensation 100% on all extremities; no other gross focal neurologic deficits Skin- warm & dry Results & Data Results & Data ([facility]) Vital Signs (Past 12 Hours) Vital Signs Temp Pulse Resp BP BP Pulse Ox 01/02/21 08:10 36.3 C L 67 20 155/93 H 99 01/02/21 06:49 68 18 148/85 H 99 01/02/21 05:00 60 16 133/81 98 01/02/21 03:03 61 16 134/85 99 all noted and reviewed including below
--- NOTE | 2021-01-02 13:18 | CT Scan Report ---
CT ANGIOGRAPHY OF THE CHEST, PULMONARY EMBOLUS PROTOCOL CLINICAL HISTORY: Chest pain. Shortness of breath. Evaluate for pulmonary embolus. COMPARISON STUDY: Chest CT and chest radiograph January 01, 2021. TECHNIQUE: Following IV administration of 120 mL of Optiray, helical axial images of the chest were o btained utilizing the pulmonary embolus protocol. Maximal intensity projections and sagittal and cor onal reformats were viewed on an independent 3D workstation. IV contrast was administered without co mplication. Automated exposure control was utilized for the study. A dose lowering technique was ut ilized adhering to the principles of ALARA. CT DOSE: 285.81 mGy.cm FINDINGS: No pulmonary emboli are identified. There is no thoracic aortic dissection. The size of th e heart is normal. There is no pericardial effusion. No enlarged thoracic lymph nodes are present. Ce ntral airways are patent. There is no pneumothorax. There are trace bilateral pleural effusions. Ther e is no consolidation to suggest pneumonia. No acute fracture or suspicious lesion is identified with in visualized portions of the bony thorax. Spleen is partially imaged on this exam. There is borderli ne splenomegaly. IMPRESSION: 1. No pulmonary emboli identified. 2. No consolidation to suggest pneumonia. 3. Trace bilateral pleural effusions. 4. Borderline splenomegaly. ACT 112: Negative or not required by law. Electronically signed by: Larry Todd M.D. 01/02/2021 1:17 PM
[2021-01-02] MEDS: AMOXICILLIN/CLAVULANATE 875 MG TAB PO SCH ×2 (13:31→17:06)
[2021-01-02] MEDS: NAPROXEN 250 MG TAB PO SCH ×2 (13:31→20:12)
--- NOTE | 2021-01-02 21:39 | Rheumatology Consultation ---
Rheumatology Consultation DOS January 02, 2021 Reason for Consultation Diffuse joint pain Assessment & Plan (1) Acute streptococcal pharyngitis: Currently on Augmentin (2) Back pain: Not exacerbated on exam. No peripheral joint swelling on exam. Given onset of joint symptoms in setting of a recent infection, overall presentation is suggestive of a post-streptococcal reactive arthritis versus an acute reactive arthritis. Back pain laterality: midline Back pain location: thoracic back pain Chronicity: acute Qualified Code(s): M54.6 - Pain in thoracic spine (3) Chest pain: non cardiac in nature and was transient per patient. Not exacerbated on musculoskeletal exam Chest pain type: unspecified Qualified Code(s): R07.9 - Chest pain, unspecified If she is not responding to NSAID, consider instead systemic steroids. A starting dose of prednisone 20 mg daily for 4 days, 15 mg x 4 days, 10 mg x 4 days, 5 mg x 4 days then stop Agree with echocardiogram History of Present Illness Attending Physician: Roxann Campos DO History of Present Illness 25 year old female with medical history significant for sickle cell trait and beta thalessemia who is admitted for further management of back pain and extremity pain. She was seen in the [facility] ED on 12/27/20 for further evaluation of throat pain and swelling. History was notable in that her daughter had recently been treated for strep throat about 2.5 weeks prior. Patient developed congestion, nausea, chills, and intermittent dizziness 1 week prior to presenting to medical attention. She initially thought her symptoms were due to a cold given the recent change in the weather. However, when she noticed worsening throat pain, she present to the ED to be tested and tested postiive for Group A strep. She was prescribed 10 days of Augmentin and 5 days of prednisone 50 mg daily. She notes that 5 days before presenting here again, she developed acute pain in her upper back that would radiate to her chest which she noted was worse when she was hyperventilating due to the pain. Pain also ran down her arms and she then developed pain across her lower back and a pressure type pain in her hips/groin. Pain was made worse with sitting or laying down. She tried taking Tylenol 1000 mg daily without much improvement. She was seen by [facility] on 01/01/21 complaining of these symptoms. CMP, CBC, CK, ESR, and lyme test were drawn and she was given a prescription for hydrocodone-acetaminophen 5-325 mg tabs to take 1 tab every 8 hours as needed for pain. She notes that she used 1 tablet and then took another about 4 hours later without improvement in her pain so she presented to the ED. She has not had any fevers, rashes, joint swelling, shortness of breath, mouth sores, nasal ulcers, or vision issues. She notes that she experienced similar pain shortly after she gave to her daughter in 2018. She underwent extensive workup and the cause of her pain was not found. Pain responded only to morphine and she was then sent home on ibuprofen. Pain syndrome lasted about 2-3 weeks before resolving. Does not typically get joint pain but notes that only prescription NSAIDs seem to help. Allergies Allergy/AdvReac Type Severity Reaction Status Date / Time No Known Allergies Allergy Verified 01/01/21 23:51 Home Medications Medication Instructions Recorded Confirmed Type amoxicillin 875 mg-potassium 1 tab PO Q12H 10 Days #20 tab 12/27/20 01/01/21 Rx clavulanate 125 mg tablet (Augmentin) norethindrone 1.5 mg-ethinyl 1 tab PO QAM 12/27/20 01/01/21 History estradiol 30 mcg(21)/iron 75 mg(7) tablet (Junel FE 1.5/30 (28)) prednisone 50 mg tablet 50 mg PO DAILY 01/01/21 01/01/21 History Patient History Medical History (Updated 01/02/21 @ 21:34 by Nithya Mendez MD, PhD) Beta thalassemia Sickle cell trait Surgical History No pertinent past surgical history Social History Smoking Status: Never smoker Hx Alcohol Use: Yes Alcohol type: wine and hard liquor Hx Substance Use: No Preferred Language: Serbian Boom Worker Required: No Beliefs That Will Affect Care: None Current Living Situation: Family Current Living Situation Comment: Daughter and father of daughter Other Information That Helps Us Care for You: No Feels Safe at Home: Yes Safety Concerns: Feels Safe At This Time Assistive Devices: None Review of Systems Review of Systems: + chills, nausea, chest pain, back,hip and extremity pain - for rashes, joint swelling, mouth sores/nasal ulcers, diarrhea, vomiting, paresthesias Physical Exam Physical Exam: Gen: standing in the room rubbing her back, was uncomfortable sitting or laying down for an extended period of time ENT: no oral or nasal ulcers, moist mucus membranes Neck: supple without LAD Resp: clear to asculaation CV: regular rate and rhythm without murmurs GI: soft non-tender MSK: no musculoskeletal tenderness on exam. no chest wall or back tenderness. Negative Doreen testing. Good range of motion of peripheral joints. No joint swelling Skin: no rashes Neuro: normal gait and strength Results & Data ([facility]) Vital Signs (Past 12 Hours) Vital Signs Temp Pulse Resp BP Pulse Ox 01/02/21 16:00 37.1 C 71 18 136/80 99 Diagnostic Findings Component Latest Ref Rng & Units 01/01/2021 BUN 6 - 20 mg/dL 10 Creatinine 0.5 - 1.0 mg/dL 0.9 Estimated Glomerular Filtration Rate >=60.0 mL/min 85.8 Sodium 135 - 146 mmol/L 137 Potassium 3.5 - 5.1 mmol/L 4.4 Chloride 98 - 107 mmol/L 103 CO2 22 - 32 mmol/L 24 Anion Gap 7 - 15 mmol/L 10 Glucose 70 - 120 mg/dL 101 Albumin 3.8 - 5.0 g/dL 3.9 AST 10 - 35 U/L 18 Alkaline Phosphatase 35 - 130 U/L 65 Bilirubin, Total <=1.2 mg/dL 0.5 Calcium 8.4 - 10.2 mg/dL 9.0 Protein 6.0 - 8.3 g/dL 6.7 ALT 10 - 35 U/L 24 WBC 4.00 - 10.80 K/uL 11.81 (H) Neutrophils % 40.0 - 75.0 % 78.0 (H) Lymphocytes % 18.0 - 42.0 % 12.5 (L) Monocytes % 1.0 - 11.0 % 9.2 Eosinophils % 0.0 - 6.0 % 0.1 Basophils % 0.0 - 2.0 % 0.2 Absolute Neutrophils 1.80 - 7.70 K/uL 9.21 (H) Absolute Lymphocytes 1.00 - 4.80 K/ul 1.48 Absolute Monocytes 0.00 - 1.10 K/uL 1.09 Absolute Eosinophils 0.00 - 0.70 K/uL 0.01 Absolute Basophils 0.00 - 0.20 K/uL 0.02 WBC 4.00 - 10.80 K/uL 11.81 (H) RBC 3.85 - 5.15 M/uL 5.46 (H) HGB 12.0 - 15.3 g/dL 12.1 HCT 36.0 - 45.2 % 34.4 (L) MCV 81.5 - 97.5 fL 63.0 (L) MCH 27.0 - 34.0 pg 22.2 (L) MCHC 32.0 - 36.0 g/dL 35.2 RDW 11.5 - 15.5 % 16.3 (H) Plt 140 - 400 K/uL 250 MPV 6.6 - 11.1 fL 10.3 ESR <20 mm/hour 14 CK 26 - 192 U/L 56 CTA FINDINGS: No pulmonary emboli are identified. There is no thoracic aortic dissection. The size of the heart is normal. There is no pericardial effusion. No enlarged thoracic lymph nodes are present. Central airways are patent. There is no pneumothorax. There are trace bilateral pleural effusions. There is no consolidation to suggest pneumonia. No acute fracture or suspicious lesion is identified within visualized portions of the bony thorax. Spleen is partially imaged on this exam. There is borderline splenomegaly. IMPRESSION: 1. No pulmonary emboli identified. 2. No consolidation to suggest pneumonia. 3. Trace bilateral pleural effusions. 4. Borderline splenomegaly. CT thoracic and lumbar spine reviewed - no abnormalities noted
[2021-01-03 05:45] LABS: Basophils # (auto) 0.02 K/uL (0-0.2); Basophils % (auto) 0.2 %; Eosinophils # (auto) 0.05 K/uL (0-0.5); Eosinophils % (auto) 0.5 %; Hematocrit (blood only) 35.3 % (37-47); Hemoglobin 12.3 g/dL (12.0-16.0); Immature Granulocytes # (auto) 0.15 K/uL (0.00-0.02); Immature Granulocytes % (auto) 1.4 %; Lymphocytes # (auto) 2.61 K/uL (1.2-3.4); Lymphocytes % (auto) 24.4 %; Mean Corpuscular Hemoglobin 22.2 pg (25-34); Mean Corpuscular Hgb Conc 34.8 g/dL (32-36); Mean Corpuscular Volume 63.8 fL (80-100); Mean Platelet Volume 9.8 fL (7.4-10.4); Monocytes # (auto) 0.73 K/uL (0.11-0.59); Monocytes % (auto) 6.8 %; Neutrophils # (auto) 7.14 K/uL (1.4-6.5); Neutrophils % (auto) 66.7 %; Platelet Count 209 K/uL (130-400); RDW Coefficient of Variation 15.9 % (11.5-14.5); RDW Standard Deviation 36.6 fL (36.4-46.3); Red Blood Count 5.53 M/uL (4.2-5.4)
[2021-01-03 06:07] LABS: Microcytosis Present; Polychromasia 1+
[2021-01-03 06:29] LABS: BUN Creatinine Ratio 12.6 (10-20); Calcium 8.4 mg/dl (8.5-10.1); Creatinine Clr Calc Pharmacy 87.4 ml/min; Est GFR (Non-African American) 79.4 ml/min; Magnesium 2.3 mg/dl (1.8-2.4); Potassium 4.3 mmol/L (3.5-5.1)
[2021-01-03] MEDS: NAPROXEN 250 MG TAB PO SCH ×2 (08:17→20:34)
[2021-01-03] MEDS: AMOXICILLIN/CLAVULANATE 875 MG TAB PO SCH ×2 (08:17→16:56)
[2021-01-03] MEDS: ACETAMINOPHEN 325 MG TAB PO PRN ×3 (10:53→20:34)
[2021-01-03] MEDS: ENOXAPARIN INJ 40 MG/0.4 ML SYR SQ SCH (10:55)
[2021-01-03] MEDS: MoRPHine SULFATE 2 MG/ML CARP IV PRN (11:57)
[2021-01-03] MEDS: predniSONE 20 MG TAB PO SCH (13:47)
--- NOTE | 2021-01-03 16:37 | Hospitalist Progress Note ---
Date of Service January 03, 2021 Assessment & Plan (1) Streptococcal arthritis: Plan: ASSESSMENT AND PLAN: This is a 25-year-old female who presents with back pain. 1. Back pain radiating to the legs, possible post streptococcal arthritis versus acute rheumatic fever --Diagnosed with strep throat 12/27/2020, currently on Augmentin --ESR normal --CT thoracic and lumbar spine with no acute findings --Repeat strep test Check echo --Change Toradol to naproxen twice daily Morphine as needed Continue Augmentin --We will consult rheumatology and infectious disease --PT and OT evaluation 01/03/2021 Echocardiogram: Moderate concentric LVH, otherwise unremarkable Repeat strep test: Negative Appreciate rheumatology service recommendations Patient afebrile Pain level only slightly better We will initiate prednisone 20 mg daily x4 days, 50 mg x 4 days, etc. until 5 mg Continue naproxen, as needed morphine PT evaluation Continue to monitor closely 2. Strep throat: Continue and complete the course of Augmentin. 3. History of sickle cell trait. 4. Deep venous thrombosis prophylaxis: Lovenox. DISPOSITION: Pending plan of care discussed with patient in detail and at length all questions answered she is understanding, agreeable, comfortable with the plan of care Admission and Anticipated Discharge Date Admission Date: January 03, 2021 Subjective Follow-up for possible post alcohol arthritis, etc. Seen with TECHNICAL SALES DIRECTOR at the bedside throughout whole encounter Patient seen at bedside Not in distress Reports pain is mostly in the right hip Worse with laying flat Pain level about the same or may be slightly better compared to yesterday per patient Denies chest pain, dyspnea or palpitation, headache, cough, abdominal pain, change in urination or bowel movement No other symptoms Review of Systems Review of Systems: all noted and negative except for above Physical Exam Physical Exam: General- oriented x 3, not in distress, speaks in sentences with no effort or accessory muscle use Eyes- anicteric Neck- no JVD Lungs- clear breath sounds bilaterally, no rales/wheezes Heart- normal rate, regular rhythm; no murmurs Abdomen- normal bowel sounds, nondistended, soft, nontender Extremities- no pretibial edema, no calf tenderness No rashes No nodules No joint swelling/edema/erythema/warmth/tenderness Neuro- alert, oriented x 3; no gross focal neurologic deficits Skin- warm & dry Results & Data Results & Data ([facility]) Vital Signs (Past 12 Hours) Vital Signs Temp Pulse Resp BP Pulse Ox 01/03/21 07:29 37 C 67 16 118/74 98 all noted and reviewed including below
[2021-01-04] MEDS: MoRPHine SULFATE 2 MG/ML CARP IV PRN (00:46)
[2021-01-04] MEDS: ACETAMINOPHEN 325 MG TAB PO PRN (06:56)
[2021-01-04] MEDS: AMOXICILLIN/CLAVULANATE 875 MG TAB PO SCH ×2 (08:13→16:46)
[2021-01-04] MEDS: NAPROXEN 250 MG TAB PO SCH ×2 (08:13→21:44)
[2021-01-04] MEDS: predniSONE 20 MG TAB PO SCH (08:39)
[2021-01-04] MEDS: ENOXAPARIN INJ 40 MG/0.4 ML SYR SQ SCH (10:43)
--- NOTE | 2021-01-04 12:50 | Hospitalist Progress Note ---
Date of Service January 04, 2021 Assessment & Plan (1) Streptococcal arthritis: Plan: ASSESSMENT AND PLAN: This is a 25-year-old female who presents with back pain. 1. Back pain radiating to the legs, possible post streptococcal arthritis --Acute traumatic fever unlikely --Diagnosed with strep throat 12/27/2020, currently on Augmentin --ESR normal --CT thoracic and lumbar spine with no acute findings --Repeat strep test Check echo --Change Toradol to naproxen twice daily Morphine as needed Continue Augmentin --We will consult rheumatology and infectious disease --PT and OT evaluation 01/03/2021 Echocardiogram: Moderate concentric LVH, otherwise unremarkable Repeat strep test: Negative Appreciate rheumatology service recommendations Patient afebrile Pain level only slightly better We will initiate prednisone 20 mg daily x4 days, 50 mg x 4 days, etc. until 5 mg Continue naproxen, as needed morphine PT evaluation Continue to monitor closely 01/04/2021 Pain improving overall after prednisone was initiated Continue prednisone taper as outlined above Continue naproxen, as needed morphine Continue physical therapy Anticipate discharge to home tomorrow medically stable 2. Strep throat: Continue and complete the course of Augmentin. 3. History of sickle cell trait. 4. Deep venous thrombosis prophylaxis: Lovenox. DISPOSITION: Anticipate discharge home tomorrow medically stable plan of care discussed with patient in detail and at length all questions answered she is understanding, agreeable, comfortable with the plan of care Admission and Anticipated Discharge Date Admission Date: January 03, 2021 Subjective Follow-up for possible streptococcal arthritis, etc. Seen with MYA Sanderson at the bedside throughout whole encounter Resting in bed, comfortable, not in distress, Good spirits Was unable to sleep yesterday due to pain but better this morning States she feels better overall better today compared to yesterday Pain is mild mostly on the right hip Right lower extremity pain has resolved Able to ambulate better Lower back pain also improved especially with heating pad No upper back pain, chest pain, shortness of breath, palpitations, dizziness No sore throat No abdominal pain, nausea vomiting, appetite is great No other symptoms Review of Systems Review of Systems: all noted and negative except for above Physical Exam Physical Exam: General- oriented x 3, not in distress, speaks in sentences with no effort or accessory muscle use Eyes- anicteric Neck- no JVD Lungs- clear to auscultation bilaterally, no crackles or wheezing Heart- normal rate, regular rhythm; no murmurs Abdomen- normal bowel sounds, nondistended, soft, no tenderness in all quadrants Extremities- no pretibial edema, no calf tenderness No joint edema/erythema/tenderness/warmth No rashes No nodules Neuro- alert, oriented x 3; no gross focal neurologic deficits Skin- warm & dry Results & Data Results & Data ([facility]) Vital Signs (Past 12 Hours) Vital Signs Temp Pulse Resp BP Pulse Ox 01/04/21 08:02 37.0 C 62 18 117/77 100 all noted and reviewed including below
[2021-01-05 07:14] VITALS: BP 103/66; PULSE 74; TEMP 98.2; O2SAT 100
[2021-01-05] MEDS: predniSONE 20 MG TAB PO SCH (07:50)
[2021-01-05] MEDS: AMOXICILLIN/CLAVULANATE 875 MG TAB PO SCH (07:50)
[2021-01-05] MEDS: NAPROXEN 250 MG TAB PO SCH (07:51)
[2021-01-05] MEDS: ENOXAPARIN INJ 40 MG/0.4 ML SYR SQ SCH (09:45)
--- NOTE | 2021-01-05 10:51 | Hospitalist Progress Note ---
Date of Service January 05, 2021 Assessment & Plan (1) Streptococcal arthritis: Plan: ASSESSMENT AND PLAN: This is a 25-year-old female who presents with back pain. 1. Back pain radiating to the legs, possible post streptococcal arthritis --Acute traumatic fever unlikely -Diagnosed with strep throat 12/27/2020 Seen at the ER, prescribed with 10-day course of Augmentin and 4-day course of prednisone 50 mg x 4 days 3 days later, patient started to experience upper back pain radiating to her chest, and low back pain with lower extremity pain --ESR normal --CT thoracic and lumbar spine with no acute findings --Repeat strep test negative echo: Moderate concentric LVH, otherwise unremarkable --Afebrile while admitted Given naproxen twice daily and as needed morphine with minimal improvement --Rheumatology consulted, Dr. Mendez Initiated on prednisone taper starting with 20 mg x 4 days, 15 mg x 4 days, etc. until 5 mg x 4 days then stop Augmentin continued --Lower back, hip, and lower extremity pain significantly improved --Discharge to home with prednisone taper As needed Tylenol Follow-up with PCP in 1 week 2. Strep throat: Continue and complete the course of Augmentin January 06, 2021. 3. History of sickle cell trait. 4. Deep venous thrombosis prophylaxis: Lovenox. DISPOSITION: Discharge to home, follow-up with Dr. Calderon in 1 week plan of care discussed with patient in detail and at length all questions answered she is understanding, agreeable, comfortable with the plan of care Admission and Anticipated Discharge Date Admission Date: January 03, 2021 Subjective Follow-up for poststreptococcal arthritis, etc. Seen with MYA Condon at the bedside throughout whole encounter Sitting up in bedside chair, in good spirits, comfortable States that she is much better overall Pain has mostly resolved and significantly better, very minimal residual right hip joint pain and low back pain Ambulating much better No shortness of breath, chest pain, palpitations, dizziness, headache, nausea vomiting, abdominal pain, fevers or chills No other symptoms States that she is ready and would like to be discharged today Review of Systems Review of Systems: all noted and negative except for above Physical Exam Physical Exam: General- oriented x 3, not in distress, speaks in sentences with no effort or accessory muscle use Eyes- anicteric Neck- no JVD Lungs- clear breath sounds, no crackles or wheezing appreciated bilaterally Heart- normal rate, regular rhythm; no murmurs Abdomen- normal bowel sounds, nondistended, soft, nontender Extremities- no pretibial edema, no calf tenderness No joint edema/erythema/warmth/tenderness No rashes noted Neuro- alert, oriented x 3; no gross focal neurologic deficits Skin- warm & dry Results & Data Results & Data ([facility]) Vital Signs (Past 12 Hours) Vital Signs Temp Pulse Resp BP BP Pulse Ox 01/05/21 07:00 36.8 C 74 16 103/66 100 01/04/21 23:13 36.6 C 65 18 103/65 99 all noted and reviewed including below
--- NOTE | 2021-01-05 11:35 | Discharge Summary ---
Date of Service January 05, 2021 Admission HPI Per Admitting Provider CHIEF COMPLAINT: Back pain. HISTORY OF PRESENT ILLNESS: This is a 25-year-old female with no significant past medical history, who was diagnosed with strep throat on last Monday, has been taking Augmentin. She finished a 5-day course of Augmentin, five more days left. Presents with back pain.Back pain started about 5 days ago, back of the thoracic spine and lumbar spine, also pain is radiating to the chest and was radiating to lower extremities, which prompted her to come to the ER and she says she also is not able to walk much because of pain. There was some nausea, but it is improved. Was also somewhat constipated, that is improved. Denies any shortness of breath, no cough, no headache. Some mild neck pain. No no runny nose, no sore throat. Appetite is not that great. Normal bladder moveme nts. Currently, resting comfortably and hemodynamically stable. In the ER, venous Doppler and lumbar spine x ray was done. Hemodynamically stable with a mild temperature spike of 37.6. Lyme screen negative. The patient received Toradol, dexamethasone, Valium, gabapentin, morphine in the ER. Still not feeling better, so we were called for admission. Admission Exam (Per Admitting) Constitutional GENERAL: The patient is of moderate build, not in acute distress. VITAL SIGNS: Temperature 36.6, pulse 61, respiratory rate 16, blood pressure 134/85, oxygen 99% on room air. HEENT: Pupils equal, round and reactive to light. Oral mucosa moist. NECK: No JVD or neck masses. CARDIOVASCULAR: S1 and S2 heard. Regular rate and rhythm. No murmur, no gallop. RESPIRATORY SYSTEM: Normal AP diameter. No accessory muscle use. No wheezing, no crackles. ABDOMEN: Soft, bowel sounds present, nontender, no distention. CENTRAL NERVOUS SYSTEM: Cranial nerves II-XII grossly intact, nonfocal. MUSCULOSKELETAL: No spinal tenderness present. Straight leg test negative. EXTREMITIES: No edema, no erythema. Discharge Data Consultations 01/02/21 04:49 ED Decision to Admit Stat 01/02/21 10:25 Consult Infectious Diseases Routine Consult Rheumatology Routine Procedures Performed US venous doppler LE BI CLINICAL HISTORY: leg pain COMPARISON STUDY: August 13, 2017 FINDINGS: Real-time and color flow Doppler imaging were performed. Flow was seen within the femoral, popliteal and calf veins with no intraluminal thrombus demonstrated. The saphenous vein is patent. IMPRESSION: No evidence of deep venous thrombosis. ACT 112: Negative or not required by law. CT OF THE LUMBAR SPINE CLINICAL HISTORY: severe back pain COMPARISON STUDY: Lumbar spine radiographs January 02, 2021. TECHNIQUE: Helical axial images of the lumbar spine were obtained. Sagittal and coronal reconstructions were viewed. Automated exposure control was utilized for the study. A dose lowering technique was utilized adhering to the principles of ALARA. FINDINGS: Alignment of the lumbar spine is anatomic. Slight concavity of several endplates is chronic/developmental. There is no acute fracture. There is no osseous lesion. Facet joints are intact. Disc spaces are preserved. Central canal and neural foramen are suboptimally assessed by CT. IMPRESSION: No acute lumbar spine fracture or subluxation. ACT 112: Negative or not required by law. CT OF THE THORACIC SPINE CLINICAL HISTORY: Severe back pain. COMPARISON STUDY: Chest CT January 01, 2021. TECHNIQUE: Helical axial images of the thoracic spine were obtained. Sagittal and coronal reconstructions were viewed. Automated exposure control was utilized for the study. A dose lowering technique was utilized adhering to the principles of ALARA. FINDINGS: Incidental note is made of trace bilateral pleural effusions. Alignment of the thoracic spine is anatomic. Vertebral body heights are maintained. There is no fracture. There is no suspicious osseous lesion. The facet joints are intact. Disc spaces are preserved. Central canal and neural foramen are suboptimally assessed by CT but appear patent. IMPRESSION: No acute thoracic spine fracture or subluxation. ACT 112: Negative or not required by law. CT ANGIOGRAPHY OF THE CHEST, PULMONARY EMBOLUS PROTOCOL CLINICAL HISTORY: Chest pain. Shortness of breath. Evaluate for pulmonary embolus. COMPARISON STUDY: Chest CT and chest radiograph January 01, 2021. TECHNIQUE: Following IV administration of 120 mL of Optiray, helical axial images of the chest were obtained utilizing the pulmonary embolus protocol. Maximal intensity projections and sagittal and coronal reformats were viewed on an independent 3D workstation. IV contrast was administered without complication. Automated exposure control was utilized for the study. A dose lowering technique was utilized adhering to the principles of ALARA. CT DOSE: 285.81 mGy.cm FINDINGS: No pulmonary emboli are identified. There is no thoracic aortic dissection. The size of the heart is normal. There is no pericardial effusion. No enlarged thoracic lymph nodes are present. Central airways are patent. There is no pneumothorax. There are trace bilateral pleural effusions. There is no consolidation to suggest pneumonia. No acute fracture or suspicious lesion is identified within visualized portions of the bony thorax. Spleen is partially imaged on this exam. There is borderline splenomegaly. IMPRESSION: 1. No pulmonary emboli identified. 2. No consolidation to suggest pneumonia. 3. Trace bilateral pleural effusions. 4. Borderline splenomegaly. ACT 112: Negative or not required by law. Hospital Course (1) Streptococcal arthritis: ASSESSMENT AND PLAN: This is a 25-year-old female who presents with back pain. 1. Back pain radiating to the legs, likely post streptococcal arthritis --Acute traumatic fever unlikely -Diagnosed with strep throat 12/27/2020 Seen at the ER, prescribed with 10-day course of Augmentin and 4-day course of prednisone 50 mg x 4 days 3 days later, patient started to experience upper back pain radiating to her chest, and low back pain with lower extremity pain --ESR normal D-dimer 3000 --CT thoracic and lumbar spine with no acute findings CT chest: No PE Doppler studies: Negative for DVT --Repeat strep test negative echo: Moderate concentric LVH, otherwise unremarkable --Remained afebrile while admitted Given naproxen twice daily and as needed morphine with minimal improvement --Rheumatology consulted, Dr. Mendez Initiated on prednisone taper starting with 20 mg x 4 days, 15 mg x 4 days, etc. until 5 mg x 4 days then stop Augmentin continued --Lower back, hip, and lower extremity pain significantly improved, ambulating much better --Discharge to home with prednisone taper as per rheumatology service recommendations, 20 mg x 1 day, 15 mg x 4 days, 10 mg x 4 days, 5 mg x 4 days then stop As needed Tylenol Follow-up with PCP in 1 week 2. Strep throat: Continue and complete the course of Augmentin January 06, 2021. 3. History of sickle cell trait. 4. Deep venous thrombosis prophylaxis: Lovenox. DISPOSITION: Discharge to home, follow-up with Dr. Calderon in 1 week plan of care discussed with patient in detail and at length all questions answered she is understanding, agreeable, comfortable with the plan of care
== END 2021-01-05 11:36 | disposition home or self-care (01) ==
LOC: ED 22:55 → 3N 22:55 → SUATTDRO 01-02 05:05 → 3N 01-02 08:21